=== PATIENT | male | born 1940 | race Caucasian/White ===

== ENCOUNTER → 2019-12-26 10:56 | Outpatient (BNVA) | payer OTHER, SELFPAY | PROVIDERS: Family Provider Emergency Medicine Emergency Medical Services; PCP Emergency Medicine Emergency Medical Services; Referring Provider Emergency Medicine Emergency Medical Services; Visit Provider Specialist | DX: M25.561 Pain in right knee (principal) | CPT/HCPCS: 73560; 73565 ==

== ENCOUNTER → 2020-01-08 09:02 | Outpatient (BNVA) | payer OTHER, SELFPAY | PROVIDERS: Family Provider Emergency Medicine Emergency Medical Services; PCP Emergency Medicine Emergency Medical Services; Visit Provider Specialist | DX: M25.512 Pain in left shoulder (principal); M19.012 Primary osteoarthritis, left shoulder | CPT/HCPCS: 73030 ==

== ENCOUNTER → 2020-03-03 11:29 | Outpatient (BNVA) | payer OTHER, SELFPAY | PROVIDERS: Family Provider Emergency Medicine Emergency Medical Services; PCP Emergency Medicine Emergency Medical Services; Referring Provider Emergency Medicine Emergency Medical Services; Visit Provider Podiatrist Foot & Ankle Surgery | DX: M79.671 Pain in right foot (principal); M79.672 Pain in left foot; M20.22 Hallux rigidus, left foot; M20.21 Hallux rigidus, right foot; M77.32 Calcaneal spur, left foot; M77.31 Calcaneal spur, right foot | CPT/HCPCS: 73630 ==

== ENCOUNTER → 2020-03-06 13:06 | Outpatient (BNVA) | payer OTHER, SELFPAY | PROVIDERS: Family Provider Emergency Medicine Emergency Medical Services; PCP Emergency Medicine Emergency Medical Services; Visit Provider Specialist | DX: G43.711 Chronic migraine without aura, intractable, with status migrainosus (principal); G31.83 Neurocognitive disorder with Lewy bodies; F02.80 Dementia in other diseases classified elsewhere, unspecified severity, without behavioral disturbance, psychotic disturbance, mood disturbance, and anxiety | CPT/HCPCS: 64615; 99213; J0585 ==

== ENCOUNTER → 2020-04-16 12:16 | Outpatient (BNVA) | payer OTHER, SELFPAY | PROVIDERS: Family Provider Emergency Medicine Emergency Medical Services; PCP Emergency Medicine Emergency Medical Services; Visit Provider Specialist | DX: G31.83 Neurocognitive disorder with Lewy bodies (principal); F02.80 Dementia in other diseases classified elsewhere, unspecified severity, without behavioral disturbance, psychotic disturbance, mood disturbance, and anxiety; G43.711 Chronic migraine without aura, intractable, with status migrainosus; R41.3 Other amnesia | CPT/HCPCS: 96116; 99213 ==

== ENCOUNTER 2020-04-25 08:35 | Outpatient (CLI) | payer OTHER, SELFPAY ==
--- NOTE | 2020-04-25 08:54 | MR_ITS ---
WS: [id number] MRI LUMBAR SPINE NONCONTRAST HISTORY: LUMBAR PAIN COMPARISON: None available. TECHNIQUE: Sagittal and axial multisequence imaging is submitted. Straightening of the normal lumbar lordosis. Mild disc space narrowing and desiccation throughout the lumbar spine. No marrow edema or acute fract ure. Conus terminates normally at L1. L1-L2: Diffuse annular disc bulging with facet and ligamentum flavum arthritis. Mild effacement of th e ventral thecal sac. No significant stenosis. L2-L3: Annular disc bulging and osteophytic ridging. Mild ligamentum flavum disease and facet arthrit is. Mild flattening of the ventral thecal sac and narrowing of the subarticular recesses. No signific ant stenosis. L3-L4: Diffuse annular disc bulging and osteophytic ridging. Mild facet and ligamentum flavum arthrit is. Mild bilateral subarticular recess and foraminal narrowing. L4-L5: Diffuse annular disc bulging with a focal central disc protrusion. Mild effacement of CSF. The re is mild ligamentum flavum arthritis and facet arthritis. Small amount of fluid in the facet joints . Mild central, subarticular recess and foraminal stenosis. L5-S1: Mild annular disc bulging and facet arthritis. Facet joint arthritis encroaches upon the S1 ne rve roots bilaterally without significant stenosis. RIGHT parapelvic cyst. Mild ectasia aorta. MR/MR lumbar spine wo con* [id number] IMPRESSION: 1. No severe central or foraminal stenosis. 2. Multilevel mild facet joint arthritis and spondylosis throughout the lumbar spine. 3. Mild central, subarticular recess and foraminal stenosis at L4-5. 4. Mild bilateral subarticular recess and foraminal narrowing at L3-4.
== END 2020-04-25 08:36 | disposition home or self-care (01) ==
LOC: RADSHAW 08:37
PROVIDERS: PCP Emergency Medicine Emergency Medical Services; Visit Provider Emergency Medicine Emergency Medical Services
DX: M54.5 Low back pain (principal); M48.061 Spinal stenosis, lumbar region without neurogenic claudication; M47.896 Other spondylosis, lumbar region; M13.88 Other specified arthritis, other site
CPT/HCPCS: 72148

== ENCOUNTER → 2020-05-13 08:22 | Outpatient (BNVA) | payer OTHER, SELFPAY | PROVIDERS: PCP Emergency Medicine Emergency Medical Services; Referring Provider Emergency Medicine Emergency Medical Services; Visit Provider Anesthesiology Pain Medicine | DX: M47.816 Spondylosis without myelopathy or radiculopathy, lumbar region (principal); M54.9 Dorsalgia, unspecified; M46.00 Spinal enthesopathy, site unspecified; M62.830 Muscle spasm of back; Z79.891 Long term (current) use of opiate analgesic | CPT/HCPCS: 99205 ==

== ENCOUNTER → 2020-05-21 12:55 | Outpatient (BNVA) | payer OTHER, SELFPAY | PROVIDERS: PCP Emergency Medicine Emergency Medical Services; Visit Provider Anesthesiology Pain Medicine | DX: M47.816 Spondylosis without myelopathy or radiculopathy, lumbar region (principal); M54.9 Dorsalgia, unspecified | CPT/HCPCS: 64493; 64494; 64495; J3490 ==

== ENCOUNTER → 2020-05-29 12:23 | Outpatient (BNVA) | payer OTHER, SELFPAY | PROVIDERS: PCP Emergency Medicine Emergency Medical Services; Visit Provider Specialist | DX: G43.711 Chronic migraine without aura, intractable, with status migrainosus (principal); G31.84 Mild cognitive impairment of uncertain or unknown etiology | CPT/HCPCS: 64615; 99213; J0585 ==

== ENCOUNTER → 2020-06-05 10:29 | Outpatient (BNVA) | payer OTHER, SELFPAY | PROVIDERS: PCP Emergency Medicine Emergency Medical Services; Visit Provider Anesthesiology Pain Medicine | DX: M47.816 Spondylosis without myelopathy or radiculopathy, lumbar region (principal); M46.00 Spinal enthesopathy, site unspecified; M54.9 Dorsalgia, unspecified; M62.830 Muscle spasm of back | CPT/HCPCS: 99213 ==

== ENCOUNTER → 2020-06-17 09:33 | Outpatient (BNVA) | payer OTHER, SELFPAY | PROVIDERS: PCP Emergency Medicine Emergency Medical Services; Visit Provider Anesthesiology Pain Medicine | DX: M47.816 Spondylosis without myelopathy or radiculopathy, lumbar region (principal); M54.9 Dorsalgia, unspecified | CPT/HCPCS: 64635; 64636; J1030 ==

== ENCOUNTER → 2020-07-01 12:56 | Outpatient (BNVA) | payer OTHER, SELFPAY | PROVIDERS: PCP Emergency Medicine Emergency Medical Services; Visit Provider Anesthesiology Pain Medicine | DX: M47.816 Spondylosis without myelopathy or radiculopathy, lumbar region (principal); M54.9 Dorsalgia, unspecified | CPT/HCPCS: 64635; 64636; J1030 ==

== ENCOUNTER → 2020-07-15 10:40 | Outpatient (BNVA) | payer OTHER, SELFPAY | PROVIDERS: PCP Emergency Medicine Emergency Medical Services; Visit Provider Anesthesiology Pain Medicine | DX: M47.816 Spondylosis without myelopathy or radiculopathy, lumbar region (principal); M24.28 Disorder of ligament, vertebrae; M62.830 Muscle spasm of back; M54.9 Dorsalgia, unspecified; M46.00 Spinal enthesopathy, site unspecified | CPT/HCPCS: 99213 ==

== ENCOUNTER → 2020-07-17 09:19 | Outpatient (BNVA) | payer OTHER, SELFPAY | PROVIDERS: PCP Emergency Medicine Emergency Medical Services; Visit Provider Specialist | DX: M19.012 Primary osteoarthritis, left shoulder (principal) | CPT/HCPCS: 73030 ==

== ENCOUNTER 2020-08-05 08:32 | Outpatient (RCR) | payer OTHER, SELFPAY | END 2020-09-01 23:59 | disposition home or self-care (01) | LOC: SPT 08:32 | PROVIDERS: PCP Emergency Medicine Emergency Medical Services; Referring Provider Emergency Medicine Emergency Medical Services; Visit Provider Emergency Medicine Emergency Medical Services | DX: M47.816 Spondylosis without myelopathy or radiculopathy, lumbar region (principal) | CPT/HCPCS: 97110; 97161 ==

== ENCOUNTER 2020-09-02 06:00 | Outpatient (RCR) | payer OTHER, SELFPAY | END 2020-10-02 23:59 | disposition home or self-care (01) | LOC: SPT 06:00 | PROVIDERS: PCP Emergency Medicine Emergency Medical Services; Referring Provider Emergency Medicine Emergency Medical Services; Visit Provider Emergency Medicine Emergency Medical Services | DX: M47.816 Spondylosis without myelopathy or radiculopathy, lumbar region (principal) | CPT/HCPCS: 97110; 97164 ==

== ENCOUNTER → 2020-09-24 09:48 | Outpatient (BNVA) | payer OTHER, SELFPAY | PROVIDERS: PCP Emergency Medicine Emergency Medical Services; Visit Provider Specialist | DX: G43.711 Chronic migraine without aura, intractable, with status migrainosus (principal); G31.84 Mild cognitive impairment of uncertain or unknown etiology | CPT/HCPCS: 64615; 99212; J0585 ==

== ENCOUNTER → 2020-10-06 15:54 | Outpatient (BNVA) | payer OTHER, SELFPAY | PROVIDERS: PCP Emergency Medicine Emergency Medical Services; Visit Provider Specialist | DX: G43.711 Chronic migraine without aura, intractable, with status migrainosus (principal); Z71.89 Other specified counseling | CPT/HCPCS: 96372; G0463 ==

== ENCOUNTER → 2020-12-18 08:53 | Outpatient (BNVA) | payer OTHER, SELFPAY | PROVIDERS: PCP Emergency Medicine Emergency Medical Services; Visit Provider Specialist | DX: G43.711 Chronic migraine without aura, intractable, with status migrainosus (principal); G31.84 Mild cognitive impairment of uncertain or unknown etiology | CPT/HCPCS: 64615; 99212; J0585 ==

== ENCOUNTER → 2021-03-26 10:23 | Outpatient (BNVA) | payer OTHER, SELFPAY | PROVIDERS: PCP Emergency Medicine Emergency Medical Services; Visit Provider Specialist | DX: G43.709 Chronic migraine without aura, not intractable, without status migrainosus (principal); G30.9 Alzheimer's disease, unspecified; F02.80 Dementia in other diseases classified elsewhere, unspecified severity, without behavioral disturbance, psychotic disturbance, mood disturbance, and anxiety | CPT/HCPCS: 64615; 96116; 99214; J0585 ==

== ENCOUNTER → 2021-06-25 10:03 | Outpatient (BNVA) | payer OTHER, SELFPAY | PROVIDERS: PCP Emergency Medicine Emergency Medical Services; Visit Provider Specialist | DX: G43.709 Chronic migraine without aura, not intractable, without status migrainosus (principal); G30.9 Alzheimer's disease, unspecified; F02.80 Dementia in other diseases classified elsewhere, unspecified severity, without behavioral disturbance, psychotic disturbance, mood disturbance, and anxiety | CPT/HCPCS: 64615; 99213; J0585 ==

== ENCOUNTER → 2021-09-17 08:10 | Outpatient (BNVA) | payer OTHER, SELFPAY | PROVIDERS: PCP Emergency Medicine Emergency Medical Services; Visit Provider Specialist | DX: G43.711 Chronic migraine without aura, intractable, with status migrainosus (principal); G30.9 Alzheimer's disease, unspecified; F02.80 Dementia in other diseases classified elsewhere, unspecified severity, without behavioral disturbance, psychotic disturbance, mood disturbance, and anxiety | CPT/HCPCS: 64615; 99213; J0585 ==

== ENCOUNTER → 2021-10-27 11:26 | Outpatient (BNVA) | payer OTHER, SELFPAY | PROVIDERS: PCP Emergency Medicine Emergency Medical Services; Visit Provider Surgery | DX: Z20.822 Contact with and (suspected) exposure to COVID-19 (principal) | CPT/HCPCS: 87635 ==

== ENCOUNTER 2021-10-30 08:28 | Day surgery (SDC) | payer OTHER, SELFPAY ==
[2021-10-28 15:33] VITALS: BMI 30.9
--- NOTE | 2021-10-30 08:54 | ANES.PREANE2 ---
Pre-Anesthetic Assessment Height/Weight: Height 1.65 m Weight 84.368 kg Operation Date: 10/30/21 10:00 Proposed Procedures p Colonoscopy 85364 R19.4(Not Applicable) - Johny Martin MD Familial anesthetic complications: None Was Beta Mandy taken within 24 hours: Yes Was Clonidine taken within 24 hours: N/A Social No alcohol and No tobacco Exam alert, oriented x 3, clear to auscultation bilaterally and regular rate & rhythm Airway Submandibular: within normal limits Cervical ROM: within normal limits Mallampati: Class I Dentition: false Pulmonary Chronic Obstructive Pulmonary Disease CV/HEM Atrial Fibrillation and Hypertension METS < 4 BPH Hepatic None reported GI Gastroesophageal Reflux Disease Metabolic None reported Musc/skel Osteoarthritis/DJD Unable to walk without cane Neuropsych None reported Anesthetic Plan ASA status: 3 Anesthesia: Anesthesia Evaluation and MAC Other: I discussed with the patient risks, goals, and benefits of MAC and general anesthesia. We discussed spectrum of MAC anesthesia including conversion to general as well as possibility of recall of intraoperative stimuli including discomfort/pain. Patient agrees to proceed with MAC. Risk of > 500 ml blood loss (7ml/kg in children): No Medications/Allergies Home Medications Medication Instructions Recorded Confirmed Last Taken Type aspirin 81 mg tablet,delayed 81 mg PO DAILY 12/25/19 10/28/21 Unknown History release (Adult Aspirin Regimen) azelastine 137 mcg (0.1 %) nasal 137 mcg INTRANASAL BID 12/25/19 10/28/21 Unknown History spray aerosol carboxymethylcellulose sodium 1 % 2 drop OPHTHALMIC (EYE) QID PRN 12/25/19 10/28/21 Unknown History eye liquid gel drops (Refresh Liquigel) cetirizine 10 mg tablet 10 mg PO DAILY tab 12/25/19 10/28/21 Unknown History cholecalciferol (vitamin D3) 25 1,000 unit PO DAILY 12/25/19 10/28/21 Unknown History mcg (1,000 unit) capsule finasteride 5 mg tablet 5 mg PO DAILY 12/25/19 10/28/21 Unknown History fluticasone propionate 50 2 inh INHALATION DAILY each 12/25/19 10/28/21 Unknown History mcg/actuation blister powder for inhalation folic acid 400 mcg tablet 400 mcg PO DAILY 12/25/19 10/28/21 Unknown History ipratropium 20 mcg-albuterol 100 1 puff INHALATION QID 12/25/19 10/28/21 Unknown History mcg/actuation mist for inhalation (Combivent Respimat) magnesium 200 mg tablet 400 mg PO DAILY tab 12/25/19 10/28/21 Unknown History melatonin 1 mg tablet 1 mg PO DAILY 12/25/19 10/28/21 Unknown History mometasone 50 mcg/actuation nasal 1 spray INTRANASAL DAILY gm 12/25/19 10/28/21 Unknown History spray montelukast 10 mg tablet 10 mg PO DAILY 12/25/19 10/28/21 Unknown History multivitamin 1 tab PO DAILY 12/25/19 10/28/21 Unknown History naproxen 250 mg tablet 250 mg PO DAILY PRN 12/25/19 10/28/21 Unknown History omega-3 fatty acids 1,000 mg 1,000 mg PO DAILY 12/25/19 10/28/21 Unknown History capsule (Fish Oil Concentrate) omeprazole 20 mg capsule,delayed 20 mg PO DAILY 12/25/19 10/28/21 Unknown History release pravastatin 40 mg tablet 40 mg PO DAILY 12/25/19 10/28/21 Unknown History rivaroxaban 20 mg tablet (Xarelto) 20 mg PO DAILY 12/25/19 10/28/21 Unknown History methocarbamol 750 mg tablet 750 mg PO BID #60 tab 06/05/20 10/28/21 Unknown Rx (Robaxin-750) Accomodative inserts #1 ea 07/03/20 10/07/21 Unknown Rx diabetic shoes #1 ea 09/16/20 10/07/21 Unknown Rx galantamine 12 mg tablet 12 mg PO BID #60 tab 07/03/21 10/28/21 Unknown Rx memantine 10 mg tablet (Namenda) 10 mg PO BID #60 tab 09/02/21 10/28/21 Unknown Rx calcium polycarbophil 625 mg tablet 1,250 mg PO DAILY 09/08/21 10/28/21 Unknown History docusate sodium 50 mg capsule 50 mg PO TID cap 09/08/21 10/28/21 Unknown History metoprolol tartrate 50 mg tablet 50 mg PO BID tab 09/08/21 10/28/21 Unknown History polyethylene glycol 3350 17 17 g PO DAILY PRN 09/08/21 10/28/21 Unknown History gram/dose oral powder (Miralax) erenumab-aooe 140 mg/mL 140 mg SUBCUT ONCE #1 ml 10/09/21 10/28/21 Unknown Rx subcutaneous auto-injector (Aimovig Autoinjector) albuterol sulfate 90 mcg/actuation 2 puff INHALATION Q6H PRN 10/28/21 10/28/21 Unknown History aerosol inhaler cartilage 40 mg-collagen II 10 1 tab PO DAILY 10/28/21 10/28/21 Unknown History mg-boron 5 mg-hyaluronate 3.3 mg tablet (Explore Engage) Allergies Allergy/AdvReac Type Severity Reaction Status Date / Time codeine Allergy Vomit Verified 10/28/21 15:51 PFS Anesthesia Medical History Atrial fibrillation BPH (benign prostatic hyperplasia) COPD (chronic obstructive pulmonary disease) DJD (degenerative joint disease) Headache History of fracture of lower extremity History of nonmelanoma skin cancer Hyperlipidemia Hypertension Mild cognitive impairment Numbness and tingling Surgical History History of open reduction and internal fixation (ORIF) procedure lle History of rhinoplasty Family History Other Chronic headaches Diabetes Memory loss Social History Alcohol intake: never Household members: spouse Marital status: History of recent travel: No Data Anesthesia Cardiac Studies: No Data to Display
[2021-10-30 09:15] VITALS: BP 142/76; PULSE 53; RESP 18; TEMP 36.4; O2SAT 97
[2021-10-30] MEDS: sodium chloride 0.9% 1,000 ML 30 ML IV (09:26)
--- NOTE | 2021-10-30 09:46 | W.PM.OPSFHP ---
Same Day Surgery H&P Indication for Procedure/HPI DATE OF PROCEDURE: October 30, 2021 CHIEF COMPLAINT/INDICATIONFOR SURGICAL PROCEDURE: screening PREOP DIAGNOSIS: diagnostic PLANNED PROCEDURE: Operation Date: 10/30/21 10:00 Proposed Procedures p Colonoscopy 97791 R19.4(Not Applicable) - Johny Martin MD Medications/Allergies* Home Medications Medication Instructions Recorded Confirmed Type aspirin 81 mg tablet,delayed 81 mg PO DAILY 12/25/19 10/30/21 History release (Adult Aspirin Regimen) azelastine 137 mcg (0.1 %) nasal 137 mcg INTRANASAL BID 12/25/19 10/30/21 History spray aerosol carboxymethylcellulose sodium 1 % 2 drop OPHTHALMIC (EYE) QID PRN 12/25/19 10/30/21 History eye liquid gel drops (Refresh Liquigel) cetirizine 10 mg tablet 10 mg PO DAILY tab 12/25/19 10/30/21 History cholecalciferol (vitamin D3) 25 1,000 unit PO DAILY 12/25/19 10/30/21 History mcg (1,000 unit) capsule finasteride 5 mg tablet 5 mg PO DAILY 12/25/19 10/30/21 History fluticasone propionate 50 2 inh INHALATION DAILY each 12/25/19 10/30/21 History mcg/actuation blister powder for inhalation folic acid 400 mcg tablet 400 mcg PO DAILY 12/25/19 10/30/21 History ipratropium 20 mcg-albuterol 100 1 puff INHALATION QID 12/25/19 10/30/21 History mcg/actuation mist for inhalation (Combivent Respimat) magnesium 200 mg tablet 400 mg PO DAILY tab 12/25/19 10/30/21 History melatonin 1 mg tablet 1 mg PO DAILY 12/25/19 10/30/21 History mometasone 50 mcg/actuation nasal 1 spray INTRANASAL DAILY gm 12/25/19 10/30/21 History spray montelukast 10 mg tablet 10 mg PO DAILY 12/25/19 10/30/21 History multivitamin 1 tab PO DAILY 12/25/19 10/30/21 History naproxen 250 mg tablet 250 mg PO DAILY PRN 12/25/19 10/30/21 History omega-3 fatty acids 1,000 mg 1,000 mg PO DAILY 12/25/19 10/30/21 History capsule (Fish Oil Concentrate) omeprazole 20 mg capsule,delayed 20 mg PO DAILY 12/25/19 10/30/21 History release pravastatin 40 mg tablet 40 mg PO DAILY 12/25/19 10/30/21 History rivaroxaban 20 mg tablet (Xarelto) 20 mg PO DAILY 12/25/19 10/30/21 History calcium polycarbophil 625 mg tablet 1,250 mg PO DAILY 09/08/21 10/30/21 History docusate sodium 50 mg capsule 50 mg PO TID cap 09/08/21 10/30/21 History metoprolol tartrate 50 mg tablet 50 mg PO BID tab 09/08/21 10/30/21 History polyethylene glycol 3350 17 17 g PO DAILY PRN 09/08/21 10/30/21 History gram/dose oral powder (Miralax) albuterol sulfate 90 mcg/actuation 2 puff INHALATION Q6H PRN 10/28/21 10/30/21 History aerosol inhaler cartilage 40 mg-collagen II 10 1 tab PO DAILY 10/28/21 10/30/21 History mg-boron 5 mg-hyaluronate 3.3 mg tablet (Broken Buy) Allergies/Adverse Reactions Allergy/AdvReac Type Severity Reaction Status Date / Time codeine Allergy Vomit Verified 10/28/21 15:51 Current Medications: Generic Name Dose Route Start Last Admin Trade Name Freq PRN Reason Stop Dose Admin Sodium Chloride 1,000 mls @ 30 mls/hr 10/30/21 09:30 10/30/21 09:26 Sodium Chloride 0.9% IV 10/31/21 09:29 30 mls/hr .Q24H RENITA Administration Pertinent History/Comorbid Conditions* Medical History (Updated 09/08/21 @ 09:04 by Johny Martin MD) Atrial fibrillation BPH (benign prostatic hyperplasia) COPD (chronic obstructive pulmonary disease) DJD (degenerative joint disease) Headache History of fracture of lower extremity History of nonmelanoma skin cancer Hyperlipidemia Hypertension Mild cognitive impairment Numbness and tingling Surgical History (Updated 09/08/21 @ 09:11 by Johny Martin MD) History of open reduction and internal fixation (ORIF) procedure lle History of rhinoplasty Family History (Updated 12/25/19 @ 13:19 by Lori Gonzalez LPN) Diabetes Memory loss Chronic headaches Social History Alcohol intake: never Household members: spouse Marital status: History of recent travel: No Pertinent Exam Findings alert, oriented x 3 and regular rate & rhythm Recommendations Surgery/Procedure today Coding Level of Care Code 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
[2021-10-30 10:34] VITALS: BP 97/58; PULSE 52; RESP 18; TEMP 36.1; O2SAT 97
[2021-10-30 10:48] VITALS: BP 115/68; PULSE 50; RESP 18; O2SAT 99
--- NOTE | 2021-10-30 12:59 | ANE.PACU2 ---
Inpatient post-anesthesia follow up: Airway intact: Yes Vital signs: Temperature 97.0 F Pulse Rate 50 Respiratory Rate 18 Blood Pressure 115/68 Pulse Oximetry 99 Oxygen Delivery Me thod Nasal Cannula Oxygen Flow Rate 3 Fraction of Inspir ed Oxygen Hydration adequate: Yes Nausea and vomiting: No Pain level: 1 Mental status: Baseline
== END 2021-10-30 11:26 | disposition home or self-care (01) ==
PROVIDERS: PCP Emergency Medicine Emergency Medical Services; Visit Provider Surgery
PROC: 0DJD8ZZ Inspection of Lower Intestinal Tract, Via Natural or Artificial Opening Endoscopic (ICD-10-PCS; CPT 45378; principal; 2021-10-30 10:00)
DX: K21.9 Gastro-esophageal reflux disease without esophagitis (principal); D12.0 Benign neoplasm of cecum; D12.4 Benign neoplasm of descending colon; D12.5 Benign neoplasm of sigmoid colon; D12.3 Benign neoplasm of transverse colon; K64.8 Other hemorrhoids; J44.9 Chronic obstructive pulmonary disease, unspecified; I48.91 Unspecified atrial fibrillation; I10 Essential (primary) hypertension; N40.0 Benign prostatic hyperplasia without lower urinary tract symptoms; M19.90 Unspecified osteoarthritis, unspecified site; Z79.82 Long term (current) use of aspirin; E78.5 Hyperlipidemia, unspecified
CPT/HCPCS: 45380; 45385; 88305; J2704; J7030

== ENCOUNTER → 2021-12-10 08:09 | Outpatient (BNVA) | payer OTHER, SELFPAY | PROVIDERS: PCP Emergency Medicine Emergency Medical Services; Visit Provider Specialist | DX: G43.711 Chronic migraine without aura, intractable, with status migrainosus (principal); G30.9 Alzheimer's disease, unspecified; F02.80 Dementia in other diseases classified elsewhere, unspecified severity, without behavioral disturbance, psychotic disturbance, mood disturbance, and anxiety | CPT/HCPCS: 64615; 99212; 99214; J0585 ==

== ENCOUNTER → 2022-02-18 10:35 | Outpatient (BNVA) | payer OTHER, SELFPAY | PROVIDERS: PCP Emergency Medicine Emergency Medical Services; Visit Provider Specialist | DX: Z71.89 Other specified counseling (principal); M19.012 Primary osteoarthritis, left shoulder | CPT/HCPCS: 20610; J1100; J2795; J3301 ==

== ENCOUNTER → 2022-02-19 09:08 | Outpatient (BNVA) | payer OTHER, SELFPAY | PROVIDERS: PCP Emergency Medicine Emergency Medical Services; Visit Provider Internal Medicine | DX: I48.91 Unspecified atrial fibrillation (principal); I10 Essential (primary) hypertension; E78.5 Hyperlipidemia, unspecified; Z79.01 Long term (current) use of anticoagulants; J44.9 Chronic obstructive pulmonary disease, unspecified | CPT/HCPCS: 99214 ==

== ENCOUNTER → 2022-03-04 08:58 | Outpatient (BNVA) | payer OTHER, SELFPAY | PROVIDERS: PCP Emergency Medicine Emergency Medical Services; Visit Provider Specialist | DX: G43.711 Chronic migraine without aura, intractable, with status migrainosus (principal); G30.9 Alzheimer's disease, unspecified; F02.80 Dementia in other diseases classified elsewhere, unspecified severity, without behavioral disturbance, psychotic disturbance, mood disturbance, and anxiety | CPT/HCPCS: 64615; 96116; 99213; 99214; J0585 ==

== ENCOUNTER → 2022-05-27 08:19 | Outpatient (BNVA) | payer OTHER, SELFPAY | PROVIDERS: PCP Emergency Medicine Emergency Medical Services; Visit Provider Specialist | DX: M19.012 Primary osteoarthritis, left shoulder (principal); G43.711 Chronic migraine without aura, intractable, with status migrainosus; G30.9 Alzheimer's disease, unspecified; F02.80 Dementia in other diseases classified elsewhere, unspecified severity, without behavioral disturbance, psychotic disturbance, mood disturbance, and anxiety | CPT/HCPCS: 20610; 64615; 99212; J0585; J1100; J2795; J3301 ==

== ENCOUNTER → 2022-08-19 10:36 | Outpatient (BNVA) | payer OTHER, SELFPAY | PROVIDERS: PCP Emergency Medicine Emergency Medical Services; Visit Provider Specialist | DX: G43.711 Chronic migraine without aura, intractable, with status migrainosus (principal) | CPT/HCPCS: 64615; J0585 ==

== ENCOUNTER → 2022-09-01 12:49 | Outpatient (BNVA) | payer OTHER, SELFPAY | PROVIDERS: PCP Emergency Medicine Emergency Medical Services; Visit Provider Internal Medicine | DX: I10 Essential (primary) hypertension (principal); E78.5 Hyperlipidemia, unspecified; Z79.01 Long term (current) use of anticoagulants; I48.91 Unspecified atrial fibrillation; J44.9 Chronic obstructive pulmonary disease, unspecified | CPT/HCPCS: 99213 ==

== ENCOUNTER → 2022-09-02 08:43 | Outpatient (BNVA) | payer OTHER, SELFPAY | PROVIDERS: PCP Emergency Medicine Emergency Medical Services; Visit Provider Specialist | DX: M19.012 Primary osteoarthritis, left shoulder (principal) | CPT/HCPCS: 20610; J1100; J2795; J3301 ==

== ENCOUNTER → 2022-11-11 10:48 | Outpatient (BNVA) | payer OTHER, SELFPAY | PROVIDERS: PCP Emergency Medicine Emergency Medical Services; Visit Provider Specialist | DX: G30.9 Alzheimer's disease, unspecified (principal); F02.80 Dementia in other diseases classified elsewhere, unspecified severity, without behavioral disturbance, psychotic disturbance, mood disturbance, and anxiety; G43.711 Chronic migraine without aura, intractable, with status migrainosus | CPT/HCPCS: 64615; 99212; J0585 ==

== ENCOUNTER → 2022-12-09 08:30 | Outpatient (BNVA) | payer OTHER, SELFPAY | PROVIDERS: PCP Emergency Medicine Emergency Medical Services; Visit Provider Specialist | DX: M19.012 Primary osteoarthritis, left shoulder (principal) | CPT/HCPCS: 20610; J1100; J2795; J3301 ==

== ENCOUNTER 2023-01-24 10:10 | Outpatient (CLI) | payer OTHER, SELFPAY ==
--- NOTE | 2023-01-24 11:07 | USCV_ITS ---
Reid Farooq Age: 82 Gender: M : 1940 Exam Date: 01/24/2023 11:44 Ordering Phys: Justice Koehler Technologist: Tank Ramirez Exam Location: [facility] [place] Indication: hypertension BP: 131 / 92 HR: 110 Rhythm: Atrial fibrillation Technical Quality: Adequate MEASUREMENTS (Male / Female) Normal Values 2D ECHO LVOT Diameter 2.0 cm LV Ejection Fraction MOD 2C 60.3 % LV Ejection Fraction 2C AL 60.6 % LA Diameter 3.6 cm LA Width 3.6 cm LA Height 5.5 cm RA Width 4.1 cm RA Height 5.6 cm Aorta at Sinotubular Diameter 2.7 cm IVC Diameter 1.7 cm M-MODE Aortic Annulus Diameter 2.8 cm LA Ao Ratio MM 1.1 MV E Point Septal Separation 0.4 cm DOPPLER AV Peak Velocity 124.7 cm/s LVOT Peak Velocity 68.0 cm/s AV Area Cont Eq vti 1.8 cm squared AV Area Cont Eq pk 1.8 cm squared MV Peak Velocity 88.0 cm/s MV Area PHT 5.5 cm squared MV E' Velocity 38.0 cm/s Mitral E to MV E' Ratio 5.7 Mitral E to LV E' Lateral Ratio 5.8 Mitral E to LV E' Septal Ratio 5.6 TR Peak Velocity 263.1 cm/s TR Peak Gradient 27.7 mmHg TR Mean Velocity 199.1 cm/s TR Mean Gradient 17.1 mmHg TR Velocity Time Integral 71.1 cm Right Atrial Pressure 3.0 mmHg Pulmonary Artery Systolic Pressu 30.7 mmHg PV Peak Velocity 98.7 cm/s RV Acceleration Time 0.1 s RV Ejection Time 0.3 s RV AcT/ET 0.2 FINDINGS Left Ventricle Left ventricle is normal in size. LV systolic function is normal with EF 55 to 60%. No regional wall motion abnormalities are seen. Diastolic function is indeterminate because of atrial fibrillation. Right Ventricle Normal in size and function Right Atrium Normal in size Left Atrium Normal in size Mitral Valve Mitral valve is thickened and calcified. Mild to moderate mitral regurgitation. Aortic Valve Grossly normal. No significant stenosis. Tricuspid Valve Mild tricuspid regurgitation. Pulmonary artery systolic pressure is 30 to 35 mmHg. Pulmonic Valve Not well-visualized Pericardium Normal Aorta Normal in size IVC Appears to be normal CONCLUSIONS LV systolic function is normal with EF 55 to 60%. Diastolic function is indeterminate because of atrial fibrillation Mild to moderate mitral regurgitation Mild tricuspid regurgitation Compared to prior echocardiogram from 2013, no significant changes are seen. Rodrigue Zhou MD (Electronically Signed) Final Date: 29 January 2023 16:54 S
== END 2023-01-24 10:11 | disposition home or self-care (01) ==
LOC: RAD 10:15
PROVIDERS: PCP Emergency Medicine Emergency Medical Services; Visit Provider Chiropractor
DX: I10 Essential (primary) hypertension (principal); I48.91 Unspecified atrial fibrillation; I34.0 Nonrheumatic mitral (valve) insufficiency; I07.1 Rheumatic tricuspid insufficiency
CPT/HCPCS: 93306

== ENCOUNTER → 2023-02-04 12:42 | Outpatient (BNVA) | payer OTHER, SELFPAY | PROVIDERS: PCP Emergency Medicine Emergency Medical Services; Visit Provider Specialist | DX: G43.711 Chronic migraine without aura, intractable, with status migrainosus (principal); G30.9 Alzheimer's disease, unspecified; F02.80 Dementia in other diseases classified elsewhere, unspecified severity, without behavioral disturbance, psychotic disturbance, mood disturbance, and anxiety | CPT/HCPCS: 64615; J0585 ==

== ENCOUNTER → 2023-03-17 09:15 | Outpatient (BNVA) | payer OTHER, SELFPAY | PROVIDERS: PCP Emergency Medicine Emergency Medical Services; Visit Provider Specialist | DX: M19.012 Primary osteoarthritis, left shoulder (principal) | CPT/HCPCS: 20610; J1100; J2795; J3301 ==

== ENCOUNTER → 2023-05-03 14:46 | Outpatient (BNVA) | payer OTHER, SELFPAY | PROVIDERS: PCP Emergency Medicine Emergency Medical Services; Visit Provider Nurse Practitioner Family | DX: L57.0 Actinic keratosis (principal); D18.01 Hemangioma of skin and subcutaneous tissue; L81.4 Other melanin hyperpigmentation; L82.1 Other seborrheic keratosis; D17.9 Benign lipomatous neoplasm, unspecified; B35.1 Tinea unguium; Z85.828 Personal history of other malignant neoplasm of skin | CPT/HCPCS: 17000; 17003; 99213 ==

== ENCOUNTER → 2023-05-05 08:02 | Outpatient (BNVA) | payer OTHER, SELFPAY | PROVIDERS: PCP Emergency Medicine Emergency Medical Services; Visit Provider Specialist | DX: G30.9 Alzheimer's disease, unspecified (principal); F02.80 Dementia in other diseases classified elsewhere, unspecified severity, without behavioral disturbance, psychotic disturbance, mood disturbance, and anxiety; G43.711 Chronic migraine without aura, intractable, with status migrainosus | CPT/HCPCS: 64615; 99213; J0585 ==

== ENCOUNTER 2023-05-08 10:23 | Emergency (ER) | payer OTHER, SELFPAY ==
[2023-05-08 10:24] VITALS: BP 115/78; PULSE 70; RESP 18; TEMP 37; O2SAT 96
[2023-05-08 10:35] VITALS: BP 117/82; PULSE 72; O2SAT 94
--- NOTE | 2023-05-08 10:38 | ECG_ITS ---
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 Measurements Intervals [place] Rate: 75 P: 135 MI: 218 QRS: 68 QRSD: 152 T: -26 QT: 393 QTc: 439 Interpretive Statements Atrial fibrillation with controlled ventricular response rate RIGHT BUNDLE BRANCH BLOCK [120+ ms QRS DURATION, UPRIGHT V1, 40+ ms S IN I/aVL/V4/V5/V6] Compared to ECG 02/22/2019 11:08:44 Ectopic atrial rhythm now present First degree AV block now present Sinus bradycardia no longer present Electronically Signed On 05-08-2023 19:52:01 CDT by Mayo Garcia M.D. [email or web address] [id number] f
[2023-05-08 10:39] VITALS: BP 117/82; BP 118/79; BP 121/81; PULSE 100; PULSE 72; PULSE 90
--- NOTE | 2023-05-08 10:39 | XRR_ITS ---
PROCEDURE INFORMATION: Exam: XR Chest Exam date and time: 05/08/2023 10:45 AM Age: 83 years old Clinical indication: Other: Syncope TECHNIQUE: Imaging protocol: Radiologic exam of the chest. Views: 1 view. COMPARISON: CR XR chest 1V [id number] 02/22/2019 11:24 AM FINDINGS: Lungs: The lungs are somewhat hyperinflated, likely representing COPD. Minimally increased lung markings haziness of the lower lungs, which can be seen with pulmonary congestion. Pneumonia should be excluded clinically. Pleural spaces: Unremarkable. No pleural effusion. No pneumothorax. Heart/Mediastinum: Stable cardiomediastinal silhouette. Bones/joints: Unremarkable. XR/XR chest 1V portable [id number] IMPRESSION: Streaky bibasilar atelectasis. Mild pulmonary congestion or pneumonia can have this appearance and should be excluded clinically. COPD changes.
[2023-05-08 11:05] VITALS: BP 118/82; PULSE 88; RESP 26; O2SAT 90
[2023-05-08 11:14] LABS: Basophils % 0.4 %; Eosinophils # 0.2 10^3/uL (0.0-0.8); Hematocrit 42.1 % (42.0-52.0); Hemoglobin 13.9 g/dL (11.7-16.6); Lymphocytes % 40.6 %; Mean Corpuscular Hemoglobin 32.2 pg (28.0-34.0); Mean Corpuscular Volume 97.5 fl (80-94); Mean Platelet Volume 9.1 fL (7.4-10.4); Monocytes # 0.8 10^3/uL (0.2-0.9); Monocytes % 10.1 %; Neutrophils % 45.8 %; Nucleated Red Blood Cells % 0 %; Platelet Count 178 10^3/cmm (130-400); Red Blood Count 4.32 10^6/uL (4.1-5.3); White Blood Count 7.4 10^3/uL (4.0-10.0)
--- NOTE | 2023-05-08 11:28 | ED_ITS ---
HPI - Syncope General: Chief Complaint: Syncope Stated Complaint: SYNCOPE Time Seen by Provider: 05/08/23 10:37 History of Present Illness: 83-year-old male presents emerged department via EMS personnel. Patient is accompanied by his . She states that he was sitting in mandaeism and at that time stated he did not feel well and leaned over on the pew at the mandaeism and she states that he passed out for few seconds. The patient did appear to have loss of bowel and bladder. Patient does have a history of dementia and he is pleasantly confused at present which is his baseline. The family states that he did not fall out of the mandaeism seating pew. He denies chest pain, dizziness or lightheaded feeling. He denies fatigue or malaise at present. Associated symptoms: Reports lightheadedness Review of Systems General: Reports: 10 or more systems reviewed and unremarkable except in HPI and below Card: Reports: lightheadedness and pre-syncope PFSH ED PFSH: Medical History Atrial fibrillation BPH (benign prostatic hyperplasia) Colon polyps COPD (chronic obstructive pulmonary disease) DJD (degenerative joint disease) Headache History of fracture of lower extremity History of nonmelanoma skin cancer Hyperlipidemia Hypertension Mild cognitive impairment Numbness and tingling Surgical History History of open reduction and internal fixation (ORIF) procedure lle History of rhinoplasty Status post colonoscopy (10/30/21) Family History Other Chronic headaches Diabetes Memory loss Social History Smoking and tobacco status: never smoked Alcohol intake: never Substance/Drug Use: never Household members: spouse Marital status: Physical Exam Const: COMMON NORMALS: no acute distress, average body habitus, patient oriented x3, no limitations, alert and well nourished HENMT: COMMON NORMALS: normocephalic, Normal nasal mucous membranes and turbinates present and moist oral mucous membranes HEAD & SCALP: normocephalic NOSE: Normal nasal mucous membranes and turbinates present Eye: COMMON NORMALS: Equal, round and reactive pupils present and EOMs intact bilaterally PUPIL: Yes Equal, round and reactive pupils present Neck/C-Spine: COMMON NORMALS: full ROM, no lymphadenopathy, supple and no meningeal signs Resp: COMMON NORMALS: normal respiratory effort, No retractions and clear to auscultation bilaterally AUSCULTATION: clear to auscultation bilaterally Cardio: COMMON NORMALS: regular rate, regular rhythm, S1 normal heart sound present, S2 normal heart sound present, No gallops present (Cardio), No murmurs present (Cardio) and Peripheral pulses 2+ throughout RATE: regular rate RHYTHM: regular rhythm HEART SOUNDS: S1 normal heart sound present and S2 normal heart sound present PERIPHERAL PULSES: Peripheral pulses 2+ throughout GI: COMMON NORMALS: Normal to inspection, nondistended, normoactive bowel sounds present, Soft to palpation and non-tender PALPATION: Yes Soft to palpation : COMMON NORMALS: Yes no CVA tenderness BLADDER/KIDNEY EXAM: Yes no CVA tenderness Back/Pelvis: COMMON NORMALS: no CVA tenderness and thoracic and lumbar spine normal to inspection Extremity: COMMON NORMALS: normal to inspection, full ROM and capillary refill normal Neuro: COMMON NORMALS: patient oriented x3, CN's II-XII intact bilaterally, moves all extremities, no focal motor deficits, no sensory deficits noted and deep tendon reflexes 2+ bilaterally SENSORIUM/ORIENTATION: Yes alert MENINGEAL SIGNS: Yes no meningeal signs Psych: COMMON NORMALS: mental status grossly normal, Normal thought process present and cooperative THOUGHT PROCESS: Normal thought process present Skin: COMMON NORMALS: no rashes or lesions noted and turgor normal GENERAL SKIN EXAM: no rashes or lesions noted and turgor normal Course Vital Signs: Vital signs: Vital Signs Temperature 98.6 F 05/08/23 10:24 Pulse Rate 97 05/08/23 14:32 Respiratory Rate 20 H 05/08/23 14:32 Blood Pressure 114/69 05/08/23 12:30 Pulse Oximetry 92 05/08/23 14:32 Oxygen Delivery Me thod Room Air 05/08/23 12:30 MDM - Syncope Medical Decision Making Physical exam completed and documented. I will obtain laboratory evaluation to include a CBC and a CMP to evaluate his hydration status. Patient is at his baseline. I suspect most likely that per his family he did not sleep very well last night and that may have led to his and his family's concern for his presyncopal episode. He does not appear to be in any acute distress I have discussed the radiographic and laboratory findings with the family and have advised them to follow-up with her primary care provider. Patient was discharged home in stable condition and in no acute distress at present. Medical Records I reviewed the patient's medical records. Lab Data I reviewed the patient's lab results. 05/08/23 10:45 05/08/23 10:45 Radiology Impressions Chest X-Ray 05/08/23 10:39 IMPRESSION: Streaky bibasilar atelectasis. Mild pulmonary congestion or pneumonia can have this appearance and should be excluded clinically. COPD changes. Laboratory Results WBC 7.4 10^3/uL (4.0-10.0) 05/08/23 10:45 RBC 4.32 10^6/uL (4.1-5.3) 05/08/23 10:45 Hgb 13.9 g/dL (11.7-16.6) 05/08/23 10:45 Hct 42.1 % (42.0-52.0) 05/08/23 10:45 MCV 97.5 fl (80-94) H 05/08/23 10:45 MCH 32.2 pg (28.0-34.0) 05/08/23 10:45 MCHC 33.0 g/dL (30.0-36.0) 05/08/23 10:45 RDW 12.0 % (12.1-15.1) L 05/08/23 10:45 Plt Count 178 10^3/cmm (130-400) 05/08/23 10:45 MPV 9.1 fL (7.4-10.4) 05/08/23 10:45 Neut % (Auto) 45.8 % 05/08/23 10:45 Lymph % (Auto) 40.6 % 05/08/23 10:45 [place] % (Auto) 10.1 % 05/08/23 10:45 Eos % (Auto) 3.0 % 05/08/23 10:45 Baso % (Auto) 0.4 % 05/08/23 10:45 Neut # (Auto) 3.40 10^3/uL (1.8-7.7) 05/08/23 10:45 Lymph # (Auto) 3.0 10^3/uL (0.8-4.8) 05/08/23 10:45 [place] # (Auto) 0.8 10^3/uL (0.2-0.9) 05/08/23 10:45 Eos # (Auto) 0.2 10^3/uL (0.0-0.8) 05/08/23 10:45 Baso # (Auto) 0.0 10^3/uL (0.0-0.1) 05/08/23 10:45 Nucleated RBC % (auto) 0 % 05/08/23 10:45 Nucleated RBCs # 0.0 /100WBC 05/08/23 10:45 Sodium 137 mmol/L (136-145) 05/08/23 10:45 Potassium 4.6 mmol/L (3.5-5.1) 05/08/23 10:45 Chloride 105 mmol/L (98-107) 05/08/23 10:45 Carbon Dioxide 22 mmol/L (22-29) 05/08/23 10:45 Anion Gap 14.6 (5-19) 05/08/23 10:45 BUN 16 mg/dL (8-23) 05/08/23 10:45 Creatinine 0.8 mg/dL (0.7-1.2) 05/08/23 10:45 GFR Calculation Not Reportable 05/08/23 10:45 Glucose 148 mg/dL (65-115) H 05/08/23 10:45 Calculated Osmolality 288 mOsm/kg (285-295) 05/08/23 10:45 Calcium 9.1 mg/dL (8.5-10.5) 05/08/23 10:45 Total Bilirubin 0.5 mg/dL (0.15-1.2) 05/08/23 10:45 AST 16 U/L (0-40) 05/08/23 10:45 ALT 13 U/L (0-41) 05/08/23 10:45 Alkaline Phosphatase 80 U/L (40-130) 05/08/23 10:45 Troponin T Baseline 6 ng/L (0-15) 05/08/23 10:45 Troponin T 120 Minute 6.71 ng/L (0-15) 05/08/23 13:27 Delta Troponin T 0.71 ABS# (0-10) 05/08/23 13:27 NT-Pro-B Natriuret Pep 1043 pg/mL (0-450) H 05/08/23 10:45 Total Protein 6.3 g/dL (6.6-8.7) L 05/08/23 10:45 Albumin 3.4 g/dL (3.5-5.2) L 05/08/23 10:45 Globulin 2.9 g/dL (1.3-4.6) 05/08/23 10:45 Imaging Data CXR: Radiologist's impression: Streaky bibasilar atelectasis. Mild pulmonary congestion or possible pneumonia may have this appearance and should be excluded, clinically. Changes consistent with COPD Discharge Plan Discharge Patient Disposition: Home Clinical Impression: Syncope due to orthostatic hypotension, Dehydration Condition: Stable Prescriptions: No Action metoprolol tartrate 25 mg tablet 25 mg PO BID Qty: 180 3RF calcium polycarbophil 625 mg tablet 1,250 mg PO DAILY PRN (Reason: unknown) docusate sodium 50 mg capsule 50 mg PO TID PRN (Reason: Constipation) polyethylene glycol 3350 [Miralax] 17 gram/dose powder 17 g PO DAILY PRN (Reason: Constipation) azelastine 137 mcg (0.1 %) aerosol,spray 1 spray INTRANASAL BID PRN (Reason: unknown) cetirizine 10 mg tablet 10 mg PO QPM Combivent Respimat 20-100 mcg/actuation mist 1 puff INHALATION QID cholecalciferol (vitamin D3) 25 mcg (1,000 unit) capsule 1,000 unit PO QAM folic acid 400 mcg tablet 400 mcg PO QAM mometasone 50 mcg/actuation spray,non-aerosol 1 spray INTRANASAL QAM multivitamin Tablet 1 tab PO QAM omeprazole 20 mg capsule,delayed release(DR/EC) 20 mg PO QAM pravastatin 40 mg tablet 40 mg PO QPM Refresh Liquigel 1 % drops, liquid gel 2 drop ophthalmic (eye) QID Xarelto 20 mg tablet 20 mg PO QPM Hold Instructions: Resume on 11/01/21. (DME) Accomodative inserts See Rx Instructions .Route .MEDSUPPLY Qty: 1 0RF Rx Instructions: As directed galantamine 12 mg tablet 12 mg PO BID Qty: 180 3RF memantine [Namenda] 10 mg tablet 10 mg PO BID Qty: 180 2RF (DME) diabetic shoes See Rx Instructions .Route .MEDSUPPLY Qty: 1 0RF Rx Instructions: As directed Osteo Bi-Flex 250-200 mg Tablet 1 tab PO QAM magnesium oxide 400 mg magnesium Tablet 400 mg PO QAM Aimovig Autoinjector 140 mg/mL auto-injector 140 mg SUBCUT Q30D Rx Instructions: Subcutaneous each month Discharge Orders: Discharge ED (Routine); Ordered 05/08/23 Ordered By: Augustine Santiago Referrals: Pavel Randall DO [Primary Care Provider] - Patient Instructions: Opioid Safety, Pain Management Coding Level of Care Code ED Academic Tutor for Wesly Longoria
[2023-05-08 11:44] LABS: Alanine Aminotransferase 13 U/L (0-41); Albumin Level 3.4 g/dL (3.5-5.2); Alkaline Phosphatase 80 U/L (40-130); Blood Urea Nitrogen 16 mg/dL (8-23); Calcium 9.1 mg/dL (8.5-10.5); Carbon Dioxide 22 mmol/L (22-29); Chloride 105 mmol/L (98-107); Globulin 2.9 g/dL (1.3-4.6); Glucose 148 mg/dL (65-115); NT Pro B Type Natriuretic Pept 1043 pg/mL (0-450); Osmolality Calculated 288 mOsm/kg (285-295); Sodium 137 mmol/L (136-145); Total Bilirubin 0.5 mg/dL (0.15-1.2); Total Protein 6.3 g/dL (6.6-8.7)
[2023-05-08 11:54] LABS: Anion Gap 14.6 (5-19); Aspartate Amino Transferase 16 U/L (0-40); Potassium 4.6 mmol/L (3.5-5.1)
[2023-05-08 12:02] LABS: Troponin(5th) Baseline 6 ng/L (0-15)
[2023-05-08] MEDS: sodium chloride 0.9% 1,000 ML 999 ML IV (12:13)
--- NOTE | 2023-05-08 12:19 | PC.PHAR ---
pts verified pts medications-pts states the pt hasnt taken aspirin 81mg daily for 2 months-pts states the pt no longer uses the albuterol inhaler-pts states the pt only takes the medications entered faxed id for med list-[facility] is closed on the weekends
[2023-05-08 12:30] VITALS: BP 114/69; PULSE 82; O2SAT 92
--- NOTE | 2023-05-08 12:38 | ECG_ITS ---
[facility] Test Date: 2023-05-08 Pat Name: Reid Farooq Department: Room: Gender: Male Health Teacher: : 1940 Requested By: Augustine Santiago Order Number: [id number] Antonio MD: Mayo Garcia M.D. Measurements Intervals [place] Rate: 80 P: 0 LA: 0 QRS: 72 QRSD: 157 T: -40 QT: 414 QTc: 480 Interpretive Statements ATRIAL FIBRILLATION WITH ABERRANT CONDUCTION OR VENTRICULAR PREMATURE COMPLEXES INTRAVENTRICULAR CONDUCTION DELAY [130+ ms QRS DURATION] POSSIBLE INFERIOR MYOCARDIAL INFARCTION , OF INDETERMINATE AGE [30 ms Q WAVE IN II/aVF] Compared to ECG 05/08/2023 10:30:08 Ventricular premature complex(es) now present Aberrant conduction of supraventricular beat(s) now present Intraventricular conduction delay now present Myocardial infarct finding now present Ectopic atrial rhythm no longer present First degree AV block no longer present Right bundle-branch block no longer present Electronically Signed On 05-08-2023 20:04:55 CDT by Mayo Garcia M.D. [id number]
[2023-05-08 14:00] LABS: Troponin 5 2HR 6.71 ng/L (0-15)
[2023-05-08 14:32] VITALS: PULSE 97; RESP 20; O2SAT 92
[2023-05-08 15:56] LABS: Troponin 5 2HR Delta 0.71 ABS# (0-10)
== END 2023-05-08 14:33 | disposition home or self-care (01) ==
PROVIDERS: Physician Assistant; Emergency Provider Internal Medicine; PCP Emergency Medicine Emergency Medical Services
DX: I95.1 Orthostatic hypotension (principal); E86.0 Dehydration; J44.9 Chronic obstructive pulmonary disease, unspecified; E78.5 Hyperlipidemia, unspecified; I10 Essential (primary) hypertension
CPT/HCPCS: 36415; 71045; 80053; 83880; 84484; 85025; 93005; 96360; 96361; 99285; J7030

== ENCOUNTER → 2023-05-11 13:08 | Outpatient (BNVA) | payer OTHER, SELFPAY | PROVIDERS: PCP Emergency Medicine Emergency Medical Services; Referring Provider Emergency Medicine Emergency Medical Services; Visit Provider Specialist | DX: M17.11 Unilateral primary osteoarthritis, right knee | CPT/HCPCS: 73562; 99213 ==

== ENCOUNTER → 2023-06-01 13:35 | Outpatient (BNVA) | payer OTHER, SELFPAY | PROVIDERS: PCP Emergency Medicine Emergency Medical Services; Visit Provider Internal Medicine | DX: I10 Essential (primary) hypertension (principal); E78.5 Hyperlipidemia, unspecified; Z79.01 Long term (current) use of anticoagulants; I48.91 Unspecified atrial fibrillation; J44.9 Chronic obstructive pulmonary disease, unspecified | CPT/HCPCS: 99214 ==

== ENCOUNTER 2023-06-07 09:04 | Outpatient (CLI) | payer OTHER, SELFPAY ==
--- NOTE | 2023-06-07 09:30 | MR_ITS ---
WS: [id number] MRI RIGHT KNEE HISTORY: possible loose body COMPARISON: Radiograph 05/11/2023. Anterior cruciate ligament: Abnormal ACL. The ACL is not visualized in its entirety. There is signifi cant impingement upon the mid ACL by narrowing of the joint space. On the axial images a few of the a nterior fibers do appear to be completely intact. There is no full-thickness tear. Posterior cruciate ligament: Intact. Medial collateral ligament: Intact. Posterior lateral corner structures: Intact. Medial menisci: Abnormal posterior horn. Small caliber posterior horn with abnormal signal throughout . Complex tear involving a large portion of the meniscus. Negative anterior horn. Lateral meniscus: Intact. Normal signal, size and shape. Extensor mechanism: Distal quadriceps tendon and patellar tendons are intact. Fluid and soft tissue: Very small suprapatellar joint effusion. Small loose bodies are noted within t he joint effusion. The larger loose body measures 11 mm and was described on the recent radiographs. This is just superior to the patella. Very tiny Castro's cyst. Small amount of increased signal in the semimembranosus tendon insertion site to the tibia. Osseous and articular structures: Patellofemoral compartment: Severe patellofemoral joint space narrowing and loss of cartilage. Small amount of marrow edema in the superior patella. Medial compartment: Marked narrowing of the medial compartment with loss of cartilage. Osteophytes wi th no marrow edema. Lateral compartment: Mild narrowing the lateral compartment with mild chondromalacia. Marginal osteop hytes. No marrow edema. IMPRESSION: 1. Abnormal ACL. There is marked impingement upon the mid ACL. Partial tear is suspected. At least so me of the anterior fibers are still identified although being distorted and displaced by the impingem ent. 2. Complex tear posterior horn medial meniscus. 3. Severe patellofemoral compartment internal derangement with loss of cartilage and edema. 4. Small suprapatellar effusion. There are small loose bodies within the joint effusion. There is a l arger, 11 mm loose body or osteophyte associated with the superior patella. 5. Tiny Castro's cyst. Small amount of increased T2 signal at the semimembranous tendon insertion. 6. Marked medial compartment internal derangement. Joint space is narrowed with loss of cartilage.
== END 2023-06-07 09:05 | disposition home or self-care (01) ==
PROVIDERS: PCP Emergency Medicine Emergency Medical Services; Visit Provider Specialist
DX: S83.231A Complex tear of medial meniscus, current injury, right knee, initial encounter (principal); X58.XXXA Exposure to other specified factors, initial encounter; R93.6 Abnormal findings on diagnostic imaging of limbs; M23.8X1 Other internal derangements of right knee; M25.461 Effusion, right knee; M23.41 Loose body in knee, right knee; M71.21 Synovial cyst of popliteal space [Baker], right knee
CPT/HCPCS: 73721

== ENCOUNTER → 2023-06-23 09:48 | Outpatient (BNVA) | payer OTHER, SELFPAY | PROVIDERS: PCP Emergency Medicine Emergency Medical Services; Visit Provider Specialist | DX: M19.012 Primary osteoarthritis, left shoulder (principal); Z71.89 Other specified counseling | CPT/HCPCS: 20610; J1100; J2795; J3301 ==

== ENCOUNTER → 2023-06-27 08:13 | Outpatient (BNVA) | payer OTHER, SELFPAY | PROVIDERS: PCP Emergency Medicine Emergency Medical Services; Visit Provider Specialist | DX: M17.11 Unilateral primary osteoarthritis, right knee (principal); Z09 Encounter for follow-up examination after completed treatment for conditions other than malignant neoplasm | CPT/HCPCS: 99213 ==

== ENCOUNTER → 2023-08-04 08:09 | Outpatient (BNVA) | payer OTHER, SELFPAY | PROVIDERS: PCP Emergency Medicine Emergency Medical Services; Visit Provider Specialist | DX: G43.711 Chronic migraine without aura, intractable, with status migrainosus (principal); G30.9 Alzheimer's disease, unspecified; F02.80 Dementia in other diseases classified elsewhere, unspecified severity, without behavioral disturbance, psychotic disturbance, mood disturbance, and anxiety | CPT/HCPCS: 64615; 99212; J0585 ==

== ENCOUNTER → 2023-10-13 09:43 | Outpatient (BNVA) | payer OTHER, SELFPAY | PROVIDERS: PCP Emergency Medicine Emergency Medical Services; Visit Provider Specialist | DX: M19.012 Primary osteoarthritis, left shoulder (principal); Z71.89 Other specified counseling | CPT/HCPCS: 20610; J1100; J2795; J3301 ==

== ENCOUNTER 2023-11-02 11:06 | Emergency (ER) | payer OTHER, SELFPAY ==
[2023-11-02 11:07] VITALS: BP 113/85; PULSE 77; RESP 18; TEMP 36.7; O2SAT 95; BMI 29.7
--- NOTE | 2023-11-02 11:11 | CT_ITS ---
WS: [id number] CT HEAD NONCONTRAST HISTORY: weakness TECHNIQUE: Contiguous axial imaging performed through the brain in 2.5 mm imaging. Bone and soft tiss ue windows. Sagittal and coronal reformats reviewed. All CT scans at [facility] use at least one of these dose optimization techniques: automated exposure control; mA and/or kV adjustment per pa tient size (includes targeted exams where dose is matched to clinical indication); or iterative recon struction. DLP: 1060.90 mGy.cm COMPARISON: None available. No acute intracranial hemorrhage, midline shift or mass effect. Moderate atrophy with extensive small vessel ischemic disease. Prior lacunar infarct in the RIGHT karen lamus. Prior lacunar infarcts in the external capsules bilaterally. Ventricles: Moderately dilated ventricles. No intra displacement the cerebellar tonsils. Paranasal sinuses: Mild mucoperiosteal thickening in the RIGHT maxillary sinus. No air-fluid levels. Mastoid air cells: Well pneumatized. Calvarium and scalp: Skull is intact with no soft tissue edema or swelling. IMPRESSION: 1. No acute intracranial hemorrhage or edema. 2. Moderate ventriculomegaly. Probably on the basis of atrophy. Early changes of normal pressure hyd rocephalus may appear similar. 3. Extensive small vessel ischemic disease with multiple small lacunar infarcts.
--- NOTE | 2023-11-02 11:11 | XRR_ITS ---
PROCEDURE INFORMATION: Exam: XR Chest Exam date and time: 11/02/2023 11:15 AM Age: 83 years old Clinical indication: Other: Weakness TECHNIQUE: Imaging protocol: Radiologic exam of the chest. Views: 1 view. COMPARISON: CR (CHEST, ) 05/08/2023 10:45 AM FINDINGS: Lungs: See Heart/Mediastinum finding. Pleural spaces: Unremarkable. No pleural effusion. No pneumothorax. Heart/Mediastinum: There is evidence of cardiomegaly and both lungs demonstrate chronic interstitial coarsening. No lung mass or infiltrate. Bones/joints: Unremarkable. XR/XR chest 1V portable [id number] IMPRESSION: I see no acute abnormality. Cardiomegaly with chronic lung changes
--- NOTE | 2023-11-02 11:12 | ECG_ITS ---
[facility] Test Date: 2023-11-02 Pat Name: Reid Farooq Department: Room: Gender: Male Appraisal Technician: : 1940 Requested By: Monik Augustin Order Number: [id number] Antonio MD: Rodrigue Zhou M.D. Measurements Intervals [place] Rate: 73 P: 0 VT: 0 QRS: 58 QRSD: 153 T: -6 QT: 412 QTc: 456 Interpretive Statements ATRIAL FIBRILLATION RIGHT BUNDLE BRANCH BLOCK [120+ ms QRS DURATION, UPRIGHT V1, 40+ ms S IN I/aVL/V4/V5/V6] Compared to ECG 05/08/2023 12:44:59 Right bundle-branch block now present Ventricular premature complex(es) no longer present Aberrant conduction of supraventricular beat(s) no longer present Intraventricular conduction delay no longer present Myocardial infarct finding no longer present Electronically Signed On 11-02-2023 18:30:40 RECREATIONAL RESORT MANAGER by Rodrigue Zhou M.D. [id number]
[2023-11-02] MEDS: sodium chloride 0.9% 1,000 ML 999 ML IV (11:25)
[2023-11-02 11:28] LABS: Basophils % 0.3 %; Eosinophils # 0.1 10^3/uL (0.0-0.8); Eosinophils % 1.9 %; Lymphocytes # 3.5 10^3/uL (0.8-4.8); Mean Corpuscular HGB Conc 34.8 g/dL (30-55); Mean Corpuscular Hemoglobin 32.3 pg (27-33); Mean Corpuscular Volume 92.8 fl (82-101); Mean Platelet Volume 9.4 fL (7.4-10.4); Monocytes # 0.5 10^3/uL (0.2-0.9); Monocytes % 6.9 %; Neutrophils # 2.62 10^3/uL (1.8-7.7); Neutrophils % 38.8 %; Nucleated Red Blood Cells % 0 %; Platelet Count 201 10^3/cmm (157-399); Red Blood Count 4.31 10^6/uL (3.85-5.65); Red Cell Distribution Width 12.1 % (12.1-15.1); White Blood Count 6.77 10^3/uL (3.29-11.43)
--- NOTE | 2023-11-02 11:30 | ED_ITS ---
HPI - Weakness 2 General: Chief complaint: Weakness Stated complaint: WEAKNESS Time Seen by Provider: 11/02/23 11:08 Source: patient and EMS Mode of arrival: EMS Limitations: no limitations History of Present Illness: 83-year-old male has a history of Alzhei ho's he is at [facility] this morning with his and had a near syncopal event states he had felt weak diaphoretic and like he is in a pass out EMS states that when they arrived and stood him he again had a vagal episode and felt like he was going to pass out he states he feels much improved currently. He denies any headache denies any chest pain denies any fevers Associated symptoms: Denies chest pain, chills, dysuria, fever(s), headache(s), nausea or vomiting Review of Systems 2 Const: Denies: fever(s), chills, body aches or change in appetite Eyes: Denies: blurry vision or eye discomfort ENMT: Denies: throat pain or dental pain Card: Reports: lightheadedness and pre-syncope; Denies: chest pain Resp: Denies: dyspnea GI: Denies: abdominal pain, nausea, vomiting or diarrhea : Denies: dysuria Musc: Denies: neck pain or back pain Skin/Breast: Denies: rash Neuro: Denies: headache(s) PFSH ED 2 PFSH: Medical History Colon polyps History of nonmelanoma skin cancer DJD (degenerative joint disease) Headache Numbness and tingling BPH (benign prostatic hyperplasia) Atrial fibrillation COPD (chronic obstructive pulmonary disease) Mild cognitive impairment Hyperlipidemia Hypertension History of fracture of lower extremity Surgical History Status post colonoscopy (10/30/21) History of open reduction and internal fixation (ORIF) procedure lle History of rhinoplasty Family History Other Chronic headaches Diabetes Memory loss Social History Smoking and tobacco/nicotine status: never used tobacco/nicotine Alcohol intake: never Substance/Drug Use: never Household members: spouse Marital status: Physical Exam 2 Const: COMMON NORMALS: no acute distress and healthy appearing HENMT: COMMON NORMALS: normocephalic and atraumatic HEAD & SCALP: n ormocephalic and atraumatic Eye: COMMON NORMALS: Equal, round and reactive pupils present and EOMs intact bilaterally PUPIL: Yes Equal, round and reactive pupils present Neck/C-Spine: COMMON NORMALS: full ROM and supple Chest: COMMONS NORMALS: normal inspection of the chest and normal palpation of entire chest wall Resp: COMMON NORMALS: normal respiratory effort, No retractions, No use of accessory muscles and clear to auscultation bilaterally AUSCULTATION: clear to auscultation bilaterally Cardio: COMMON NORMALS: regular rate, regular rhythm and No murmurs present (Cardio) RATE: regular rate RHYTHM: regular rhythm GI: COMMON NORMALS: Normal to inspection, nondistended, normoactive bowel sounds present, Soft to palpation, non-tender and no masses PALPATION: Yes Soft to palpation Extremity: COMMON NORMALS: normal to inspection and full ROM Neuro: COMMON NORMALS: moves all extremities and no focal motor deficits Psych: COMMON NORMALS: Normal thought process present and cooperative T HOUGHT PROCESS: Normal thought process present Skin: COMMON NORMALS: no rashes or lesions noted and no wounds GENERAL SKIN EXAM: no rashes or lesions noted Course 2 Vital Signs: Vital signs: Vital Signs Temperature 98.1 F 11/02/23 11:07 Pulse Rate 85 11/02/23 13:13 Respiratory Rate 18 11/02/23 11:07 Blood Pressure 105/77 11/02/23 13:13 Pulse Oximetry 95 11/02/23 13:13 Oxygen Delivery Me thod Room Air 11/02/23 11:07 MDM - Weakness Medical Decision Making Patient presents with a near syncopal event he is well-appearing here his orthostatics are much improved here blood work imaging is all normal he is stable for discharge she is follow-up with PCP and return if worsening he understands agrees to plan. Medical Records I reviewed the patient's medical records. Lab Data I reviewed the patient's lab results. 11/02/23 11:13 11/02/23 11:13 Radiology Impressions Chest X-Ray 11/02/23 11:11 IMPRESSION: I see no acute abnormality. Cardiomegaly with chronic lung changes Laboratory Results WBC 6.77 10^3/uL (3.29-11.43) 11/02/23 11:13 RBC 4.31 10^6/uL (3.85-5.65) 11/02/23 11:13 Hgb 13.90 g/dL (11.27-16.99) 11/02/23 11:13 Hct 40.0 % (37-53) 11/02/23 11:13 MCV 92.8 fl (82-101) 11/02/23 11:13 MCH 32.3 pg (27-33) 11/02/23 11:13 MCHC 34.8 g/dL (30-55) 11/02/23 11:13 RDW 12.1 % (12.1-15.1) 11/02/23 11:13 Plt Count 201 10^3/cmm (157-399) 11/02/23 11:13 MPV 9.4 fL (7.4-10.4) 11/02/23 11:13 Neut % (Auto) 38.8 % 11/02/23 11:13 Lymph % (Auto) 52.0 % 11/02/23 11:13 [place] % (Auto) 6.9 % 11/02/23 11:13 Eos % (Auto) 1.9 % 11/02/23 11:13 Baso % (Auto) 0.3 % 11/02/23 11:13 Neut # (Auto) 2.62 10^3/uL (1.8-7.7) 11/02/23 11:13 Lymph # (Auto) 3.5 10^3/uL (0.8-4.8) 11/02/23 11:13 [place] # (Auto) 0.5 10^3/uL (0.2-0.9) 11/02/23 11:13 Eos # (Auto) 0.1 10^3/uL (0.0-0.8) 11/02/23 11:13 Baso # (Auto) 0.0 10^3/uL (0.0-0.1) 11/02/23 11:13 Nucleated RBC % (auto) 0 % 11/02/23 11:13 Nucleated RBCs # 0.0 /100WBC 11/02/23 11:13 PT 16.20 SECONDS (12.1-14.9) H 11/02/23 11:13 INR 1.26 (0.8-1.2) H 11/02/23 11:13 Sodium 139 mmol/L (136-145) 11/02/23 11:13 Potassium 3.8 mmol/L (3.5-5.1) 11/02/23 11:13 Chloride 104 mmol/L (98-107) 11/02/23 11:13 Carbon Dioxide 24 mmol/L (22-29) 11/02/23 11:13 Anion Gap 14.8 (5-19) 11/02/23 11:13 BUN 12 mg/dL (8-23) 11/02/23 11:13 Creatinine 0.7 mg/dL (0.7-1.2) 11/02/23 11:13 GFR Calculation Not Reportable 11/02/23 11:13 Glucose 129 mg/dL (65-115) H 11/02/23 11:13 Calculated Osmolality 289 mOsm/kg (285-295) 11/02/23 11:13 Calcium 9.4 mg/dL (8.5-10.5) 11/02/23 11:13 Total Bilirubin 0.3 mg/dL (0.15-1.2) 11/02/23 11:13 AST 20 U/L (0-40) 11/02/23 11:13 ALT 15 U/L (0-41) 11/02/23 11:13 Alkaline Phosphatase 68 U/L (40-130) 11/02/23 11:13 Total Protein 6.4 g/dL (6.6-8.7) L 11/02/23 11:13 Albumin 3.7 g/dL (3.5-5.2) 11/02/23 11:13 Globulin 2.7 g/dL (1.3-4.6) 11/02/23 11:13 All radiology interpretation(s) finalized by discharge Discharge Plan Discharge Patient Disposition: Home Clinical Impression: Near syncope Condition: Stable Prescriptions: No Action calcium polycarbophil 625 mg tablet 1,250 mg PO DAILY PRN (Reason: unknown) docusate sodium 50 mg capsule 50 mg PO TID PRN (Reason: Constipation) polyethylene glycol 3350 [Miralax] 17 gram/dose powder 17 g PO DAILY PRN (Reason: Constipation) azelastine 137 mcg (0.1 %) aerosol,spray 1 spray INTRANASAL BID PRN (Reason: unknown) cetirizine 10 mg tablet 10 mg PO QPM Combivent Respimat 20-100 mcg/actuation mist 1 puff INHALATION QID cholecalciferol (vitamin D3) 25 mcg (1,000 unit) capsule 1,000 unit PO QAM folic acid 400 mcg tablet 400 mcg PO QAM multivitamin Tablet 1 tab PO QAM omeprazole 20 mg capsule,delayed release(DR/EC) 20 mg PO QAM pravastatin 40 mg tablet 40 mg PO QPM Refresh Liquigel 1 % drops, liquid gel 2 drop ophthalmic (eye) QID Xarelto 20 mg tablet 20 mg PO QPM Hold Instructions: Resume on 11/01/21. (DME) Accomodative inserts See Rx Instructions .Route .MEDSUPPLY Qty: 1 0RF Rx Instructions: As directed galantamine 12 mg tablet 12 mg PO BID Qty: 180 3RF (DME) diabetic shoes See Rx Instructions .Route .MEDSUPPLY Qty: 1 0RF Rx Instructions: As directed memantine [Namenda] 10 mg tablet 10 mg PO BID Qty: 180 2RF metoprolol tartrate 25 mg tablet 25 mg PO DAILY glucosamine-chondroitin [Osteo Bi-Flex] 250-200 mg Tablet 1 tab PO QAM magnesium oxide 400 mg magnesium Tablet 400 mg PO QAM Aimovig Autoinjector 140 mg/mL auto-injector 140 mg SUBCUT Q30D Rx Instructions: Subcutaneous each month Discharge Orders: Discharge ED (Routine); Ordered 11/02/23 Ordered By: Monik Augustin Referrals: Pavel Randall, [Primary Care Provider] - 4-7 days Discharge Diet: Advance as tolerated Discharge Activity: Resume usual activity Patient Instructions: Near Syncope (ED) Coding Level of Care Code ED Hide Worker for Wesly Longoria
[2023-11-02 11:40] LABS: INR 1.26 (0.8-1.2)
--- NOTE | 2023-11-02 11:48 | PC.PHAR ---
PT IS [facility] BUT SPOUSE DOES CARRY MEDICATION LIST WITH HER. 11/02/23
[2023-11-02 11:52] LABS: Alanine Aminotransferase 15 U/L (0-41); Albumin Level 3.7 g/dL (3.5-5.2); Alkaline Phosphatase 68 U/L (40-130); Blood Urea Nitrogen 12 mg/dL (8-23); Calcium 9.4 mg/dL (8.5-10.5); Carbon Dioxide 24 mmol/L (22-29); Chloride 104 mmol/L (98-107); Globulin 2.7 g/dL (1.3-4.6); Glucose 129 mg/dL (65-115); Osmolality Calculated 289 mOsm/kg (285-295); Sodium 139 mmol/L (136-145); Total Bilirubin 0.3 mg/dL (0.15-1.2); Total Protein 6.4 g/dL (6.6-8.7)
[2023-11-02 11:59] LABS: Anion Gap 14.8 (5-19); Aspartate Amino Transferase 20 U/L (0-40); Potassium 3.8 mmol/L (3.5-5.1)
[2023-11-02 12:47] VITALS: BP 102/68; BP 109/93; BP 116/88; PULSE 88; PULSE 92; PULSE 93
[2023-11-02 13:13] VITALS: BP 105/77; PULSE 85; O2SAT 95
== END 2023-11-02 13:14 | disposition home or self-care (01) ==
PROVIDERS: Emergency Provider Emergency Medicine; PCP Emergency Medicine Emergency Medical Services
DX: R55 Syncope and collapse (principal); J44.9 Chronic obstructive pulmonary disease, unspecified; E78.5 Hyperlipidemia, unspecified; I10 Essential (primary) hypertension
CPT/HCPCS: 70450; 71045; 80053; 85025; 85610; 93005; 99285; J7030

== ENCOUNTER → 2023-11-03 07:57 | Outpatient (BNVA) | payer OTHER, SELFPAY | PROVIDERS: PCP Emergency Medicine Emergency Medical Services; Visit Provider Specialist | DX: G30.9 Alzheimer's disease, unspecified (principal); F02.80 Dementia in other diseases classified elsewhere, unspecified severity, without behavioral disturbance, psychotic disturbance, mood disturbance, and anxiety; G43.711 Chronic migraine without aura, intractable, with status migrainosus | CPT/HCPCS: 64615; 99212; J0585 ==

== ENCOUNTER → 2023-12-02 09:50 | Outpatient (BNVA) | payer OTHER, SELFPAY | PROVIDERS: PCP Emergency Medicine Emergency Medical Services; Visit Provider Nurse Practitioner Family | DX: I10 Essential (primary) hypertension (principal); I48.21 Permanent atrial fibrillation; Z79.01 Long term (current) use of anticoagulants | CPT/HCPCS: 99214 ==

== ENCOUNTER → 2024-01-27 08:47 | Outpatient (BNVA) | payer OTHER, SELFPAY | PROVIDERS: PCP Emergency Medicine Emergency Medical Services; Visit Provider Specialist | DX: M19.012 Primary osteoarthritis, left shoulder (principal); Z71.89 Other specified counseling | CPT/HCPCS: 20610; J1100; J2795; J3301 ==

== ENCOUNTER → 2024-02-02 08:44 | Outpatient (BNVA) | payer OTHER, SELFPAY | PROVIDERS: PCP Emergency Medicine Emergency Medical Services; Visit Provider Specialist | DX: G30.9 Alzheimer's disease, unspecified (principal); G43.711 Chronic migraine without aura, intractable, with status migrainosus; G31.84 Mild cognitive impairment of uncertain or unknown etiology | CPT/HCPCS: 64615; 99212; J0585 ==

== ENCOUNTER → 2024-04-23 09:15 | Outpatient (BNVA) | payer OTHER, SELFPAY | PROVIDERS: PCP Emergency Medicine Emergency Medical Services; Visit Provider Podiatrist Foot & Ankle Surgery | DX: B35.1 Tinea unguium (principal) | CPT/HCPCS: 99203 ==

== ENCOUNTER → 2024-05-03 08:24 | Outpatient (BNVA) | payer OTHER, SELFPAY | PROVIDERS: PCP Emergency Medicine Emergency Medical Services; Visit Provider Nurse Practitioner Family | DX: L82.1 Other seborrheic keratosis (principal); D22.5 Melanocytic nevi of trunk; L57.8 Other skin changes due to chronic exposure to nonionizing radiation; L57.0 Actinic keratosis; M67.40 Ganglion, unspecified site; B35.3 Tinea pedis; L81.4 Other melanin hyperpigmentation; Z85.828 Personal history of other malignant neoplasm of skin | CPT/HCPCS: 17000; 99214 ==

== ENCOUNTER → 2024-05-04 10:36 | Outpatient (BNVA) | payer OTHER, SELFPAY | PROVIDERS: PCP Emergency Medicine Emergency Medical Services; Visit Provider Specialist | DX: M19.012 Primary osteoarthritis, left shoulder (principal) | CPT/HCPCS: 20610; J1100; J2795; J3301 ==

== ENCOUNTER 2024-05-19 18:11 | Emergency (ER) | payer OTHER, MEDICARE, SELFPAY ==
[2024-05-19 18:13] VITALS: BP 116/76; PULSE 121; RESP 16; TEMP 36.7; O2SAT 97; BMI 27.4
--- NOTE | 2024-05-19 18:30 | CTR_ITS ---
PROCEDURE INFORMATION: Exam: CT Head Without Contrast Exam date and time: 05/19/2024 6:45 PM Age: 84 years old Clinical indication: Altered mental status/memory loss; Confusion or disorientation; Patient HX: Increasing confusion and general weakness over the last two days. ; Additional info: Altered mental status increased confusion TECHNIQUE: Imaging protocol: Computed tomography of the head without contrast. Radiation optimization: All CT scans at this facility use at least one of these dose optimization techniques: automated exposure control; mA and/or kV adjustment per patient size (includes targeted exams where dose is matched to clinical indication); or iterative reconstruction. COMPARISON: CT head wo con* [id number] 11/02/2023 11:27 AM RADIATION DOSE METRICS: Total DLP (mGy-cm): 1189.16 FINDINGS: Brain: Subcortical and periventricular white matter changes consistent with small-vessel ischemic disease in the appropriate clinical setting. Small-vessel ischemic disease. No acute intracranial abnormality. Cerebral ventricles: No ventriculomegaly. Paranasal sinuses: Visualized sinuses are unremarkable. No fluid levels. Mastoid air cells: Visualized mastoid air cells are well aerated. Bones: Unremarkable. No acute fracture. Soft tissues: Unremarkable. CT/CT head wo con* [id number] IMPRESSION: 1. No acute intracranial abnormality. 2. Small-vessel ischemic disease.
--- NOTE | 2024-05-19 18:30 | XRR_ITS ---
PROCEDURE INFORMATION: Exam: XR Chest Exam date and time: 05/19/2024 6:38 PM Age: 84 years old Clinical indication: Cough; Additional info: Increasing confusion; AMS; Cough TECHNIQUE: Imaging protocol: Radiologic exam of the chest. Views: 1 view. COMPARISON: CR XR chest 1V portable [id number] 11/02/2023 11:15 AM FINDINGS: Lungs: No focal consolidation. Increased interstitial markings with peribronchial cuffing in the lung bases are nonspecific but can be seen the setting of bronchitis, pulmonary vascular congestion, viral infection and small-vessel airways disease. Pleural spaces: Unremarkable. No pleural effusion. No pneumothorax. Heart/Mediastinum: Unremarkable. No cardiomegaly. 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 XR/XR chest 1V portable [id number] IMPRESSION: 1. No focal consolidation. 2. Increased interstitial markings with peribronchial cuffing in the lung bases are nonspecific but can be seen the setting of bronchitis, pulmonary vascular congestion, viral infection and small-vessel airways disease.
--- NOTE | 2024-05-19 18:36 | ED_ITS ---
Documented by User: Anthony Donald 05/19/24 22:09 HPI - Altered Mental Status 2 General: Chief Complaint: Altered Mental Status Stated Complaint: AMS Time Seen by Provider: 05/19/24 18:17 History of Present Illness: 84-year-old male presents to the ER with his present chief complaint increased confusion and altered mental status. [facility] which was concerned about his mental status changes and confusion that suggest he come to the closest ER for further assessment and management the patient has had no recent infections or illnesses he has had no recent falls or trauma per the patient has no prior history of diabetes does report a prior history of hypertension in which she presents per the the patient has had slightly reduced appetite and oral intake next couple the last couple of days in which the patient has been somewhat bedbound due to significant weakness in which the patient presents to the ER for further assessment and management. Associated symptoms: Deny depression Related Data Home Medications Medication Instructions Recorded Confirmed azelastine 137 mcg (0.1 %) nasal 1 spray intranasal BID PRN unknown 12/25/19 05/04/24 spray carboxymethylcellulose sodium 1 % 2 drop ophthalmic (eye) QID 12/25/19 05/04/24 eye liquid gel drops (Refresh Liquigel) cetirizine 10 mg tablet 10 mg PO QPM 12/25/19 05/04/24 cholecalciferol (vitamin D3) 25 1,000 unit PO QAM 12/25/19 05/04/24 mcg (1,000 unit) capsule folic acid 400 mcg tablet 400 mcg PO QAM 12/25/19 05/04/24 ipratropium 20 mcg-albuterol 100 1 puff inhalation QID 12/25/19 05/04/24 mcg/actuation mist for inhalation (Combivent Respimat) multivitamin 1 tab PO QAM 12/25/19 05/04/24 omeprazole 20 mg capsule,delayed 20 mg PO QAM 12/25/19 05/04/24 release pravastatin 40 mg tablet 40 mg PO QPM 12/25/19 05/04/24 rivaroxaban 20 mg tablet (Xarelto) 20 mg PO QPM 12/25/19 05/04/24 calcium polycarbophil 625 mg tablet 1,250 mg PO DAILY PRN unknown 09/08/21 05/04/24 docusate sodium 50 mg capsule 50 mg PO TID PRN Constipation 09/08/21 05/04/24 polyethylene glycol 3350 17 17 g PO DAILY PRN Constipation 09/08/21 05/04/24 gram/dose oral powder (Miralax) glucosamine-chondroitin 250 mg-200 1 tab PO QAM 05/08/23 05/04/24 mg tablet (Osteo Bi-Flex) magnesium oxide 400 mg PO QAM 05/08/23 05/04/24 metoprolol tartrate 25 mg tablet 25 mg PO BID PRN 12/02/23 05/04/24 Previous Rx's Medication Instructions Recorded Accomodative inserts #1 ea 07/03/20 diabetic shoes #1 ea 09/16/20 erenumab-aooe 140 mg/mL 140 mg SUBCUT Q30D #1 mL 02/02/24 subcutaneous auto-injector (Aimovig Autoinjector) galantamine 12 mg tablet 12 mg PO BID #180 tabs 02/02/24 memantine 10 mg tablet 10 mg PO BID #180 tabs 02/02/24 metoprolol tartrate 25 mg tablet 12.5 mg (1/2 x 25 mg) PO BID #30 05/19/24 tabs Allergies Allergy/AdvReac Type Severity Reaction Status Date / Time codeine Allergy Vomit Verified 05/19/24 18:23 Review of Systems 2 General: Reports: 10 or more systems reviewed and unremarkable except in HPI and below Const: Reports: fatigue and malaise; Denies: fever(s) or chills Eyes: Denies: change in vision or blurry vision Card: Denies: chest pain or palpitations Resp: Denies: dyspnea or productive cough GI: Denies: abdominal pain, nausea or vomiting : Denies: flank pain Musc: Denies: extremity pain or extremity swelling Skin/Breast: Denies: rash or pruritus Neuro: Reports: lack of coordination and confusion; Denies: headache(s) Psych: Denies: anxiety or depression John/Lymph: Denies: easy bleeding All/Imm: Denies: urticaria, throat swelling or facial swelling PFSH ED 2 PFSH: Medical History Colon polyps History of nonmelanoma skin cancer DJD (degenerative joint disease) Headache Numbness and tingling BPH (benign prostatic hyperplasia) Atrial fibrillation COPD (chronic obstructive pulmonary disease) Mild cognitive impairment Hyperlipidemia Hypertension History of fracture of lower extremity Surgical History Status post colonoscopy (10/30/21) History of open reduction and internal fixation (ORIF) procedure lle History of rhinoplasty Family History Other Chronic headaches Diabetes Memory loss Social History Smoking and tobacco/nicotine status: former use of tobacco/nicotine Alcohol intake: never Substance/Drug Use: never Household members: spouse Marital status: Physical Exam 2 Const: COMMON NORMALS: no acute distress and healthy appearing; negative for patient oriented x3 (Alert oriented x 2 no focal neurodeficits appreciated) HENMT: COMMON NORMALS: normocephalic and atraumatic HEAD & SCALP: n ormocephalic and atraumatic Eye: COMMON NORMALS: Equal, round and reactive pupils present and EOMs intact bilaterally PUPIL: Yes Equal, round and reactive pupils present Neck/C-Spine: COMMON NORMALS: full ROM, supple and no JVD Lymph: LYMPHATIC: no lymphadenopathy noted Chest: COMMONS NORMALS: normal inspection of the chest and normal palpation of entire chest wall Resp: COMMON NORMALS: normal respiratory effort, No retractions and clear to auscultation bilaterally EFFORT & INSPECTION: Yes able to speak in complete sentences and Yes symmetric chest movement AUSCULTATION: clear to auscultation bilaterally Cardio: COMMON NORMALS: no JVD, regular rate and regular rhythm RATE: r egular rate RHYTHM: regular rhythm GI: COMMON NORMALS: Normal to inspection, nondistended, normoactive bowel sounds present, Soft to palpation and non-tender INSPECTION: Yes normal to inspection PALPATION: Yes Soft to palpation : COMMON NORMALS: Yes no CVA tenderness BLADDER/KIDNEY EXAM: Yes no CVA tenderness Back/Pelvis: COMMON NORMALS: no CVA tenderness Extremity: COMMON NORMALS: normal to inspection and full ROM Neuro: COMMON NORMALS: CN's II-XII intact bilaterally, moves all extremities and no focal motor deficits; negative for patient oriented x3 (Alert oriented x 2 no focal neurodeficits appreciated) Psych: COMMON NORMALS: mental status grossly normal, Normal thought process present, cooperative and normal affect THOUGHT PROCESS: Normal thought process present Skin: COMMON NORMALS: no rashes or lesions noted GENERAL SKIN EXAM: no rashes or lesions noted Course 2 Vital Signs: Vital signs: Vital Signs Temperature 98.0 F 05/19/24 18:13 Pulse Rate 116 H 05/19/24 23:14 Respiratory Rate 19 H 05/19/24 23:14 Blood Pressure 117/93 05/19/24 23:14 Pulse Oximetry 96 05/19/24 23:14 Oxygen Delivery Me thod Room Air 05/19/24 21:51 MDM - Altered Mental Status Medical Decision Making Discussed patient's case with present at length underlying concerns of advanced dementia with possible underlying UTI or other infection prominent no focal neurodeficit does have a stroke however due to patient's increased weakness and fatigue will be taking a CT of the head without contrast for further eval. Will continue to follow. Patient's imaging came back reassuring patient was found to be in A-fib RVR discussed patient's case with at length patient was on his metoprolol however primary care doctor took him off of it patient does appear to be somewhat dehydrated providing a dose of Lopressor currently waiting 2-hour troponin rule out at this time patient was signed out to my colleague Dr. Barcenas at [phone] anticipate possible discharge home if we can get his A-fib with RVR under control if not patient will need to be admitted and placed on a drip. Lab Data 05/19/24 19:02 05/19/24 19:02 Radiology Impressions Chest X-Ray 05/19/24 18:30 IMPRESSION: 1. No focal consolidation. 2. Increased interstitial markings with peribronchial cuffing in the lung bases are nonspecific but can be seen the setting of bronchitis, pulmonary vascular congestion, viral infection and small-vessel airways disease. Head CT 05/19/24 18:30 IMPRESSION: 1. No acute intracranial abnormality. 2. Small-vessel ischemic disease. Laboratory Results WBC 8.30 10^3/uL (3.29-11.43) 05/19/24 19:02 RBC 4.66 10^6/uL (3.85-5.65) 05/19/24 19:02 Hgb 15.00 g/dL (11.27-16.99) 05/19/24 19:02 Hct 42.9 % (37-53) 05/19/24 19:02 MCV 92.1 fl (82-101) 05/19/24 19:02 MCH 32.2 pg (27-33) 05/19/24 19:02 MCHC 35.0 g/dL (30-55) 05/19/24 19:02 RDW 13.1 % (12.1-15.1) 05/19/24 19:02 Plt Count 199 10^3/cmm (157-399) 05/19/24 19:02 MPV 8.2 fL (7.4-10.4) 05/19/24 19:02 Neut % (Auto) 59.1 % 05/19/24 19:02 Lymph % (Auto) 31.6 % 05/19/24 19:02 Kane % (Auto) 8.4 % 05/19/24 19:02 Eos % (Auto) 0.4 % 05/19/24 19:02 Baso % (Auto) 0.1 % 05/19/24 19:02 Neut # (Auto) 4.91 10^3/uL (1.8-7.7) 05/19/24 19:02 Lymph # (Auto) 2.6 10^3/uL (0.8-4.8) 05/19/24 19:02 Kane # (Auto) 0.7 10^3/uL (0.2-0.9) 05/19/24 19:02 Eos # (Auto) 0.0 10^3/uL (0.0-0.8) 05/19/24 19:02 Baso # (Auto) 0.0 10^3/uL (0.0-0.1) 05/19/24 19:02 Nucleated RBC % (auto) 0 % 05/19/24 19:02 Nucleated RBCs # 0.0 /100WBC 05/19/24 19:02 Sodium 137 mmol/L (136-145) 05/19/24 19:02 Potassium 4.2 mmol/L (3.5-5.1) 05/19/24 19:02 Chloride 101 mmol/L (98-107) 05/19/24 19:02 Carbon Dioxide 26 mmol/L (22-29) 05/19/24 19:02 Anion Gap 14.2 (5-19) 05/19/24 19:02 BUN 11 mg/dL (8-23) 05/19/24 19:02 Creatinine 0.7 mg/dL (0.7-1.2) 05/19/24 19:02 GFR Calculation Not Reportable 05/19/24 19:02 Glucose 130 mg/dL (65-115) H 05/19/24 19:02 Calculated Osmolality 285 mOsm/kg (285-295) 05/19/24 19:02 Lactic Acid 1.3 mmol/L (0.5-2.2) 05/19/24 19:02 Calcium 9.2 mg/dL (8.5-10.5) 05/19/24 19:02 Total Bilirubin 1.0 mg/dL (0.15-1.2) 05/19/24 19:02 AST 15 U/L (0-40) 05/19/24 19:02 ALT 13 U/L (0-41) 05/19/24 19:02 Alkaline Phosphatase 70 U/L (40-130) 05/19/24 19:02 Troponin T Baseline 8 ng/L (0-15) 05/19/24 19:02 Troponin T 120 Minute 6.00 ng/L (0-15) 05/19/24 21:15 Delta Troponin T -2.00 ABS# (0-10) L 05/19/24 21:15 C-Reactive Protein 23.2 mg/L (0.0-4.9) H 05/19/24 19:02 NT-Pro-B Natriuret Pep 973 pg/mL (0-450) H 05/19/24 19:02 Total Protein 5.9 g/dL (6.6-8.7) L 05/19/24 19:02 Albumin 3.7 g/dL (3.5-5.2) 05/19/24 19:02 Globulin 2.2 g/dL (1.3-4.6) 05/19/24 19:02 Urine Color Dark yellow (Yellow) A 05/19/24 19:51 Urine Appearance Clear (CLEAR) 05/19/24 19:51 Urine pH 6.5 (5-7) 05/19/24 19:51 Ur Specific [place] 1.008 (1.005-1.030) 05/19/24 19:51 Urine Protein Negative (Negative) 05/19/24 19:51 Urine Glucose (UA) Negative (Normal) 05/19/24 19:51 Urine Ketones Trace (Negative) 05/19/24 19:51 Urine Blood Negative (Negative) 05/19/24 19:51 Urine Nitrate Negative (Negative) 05/19/24 19:51 Urine Bilirubin Negative (Negative) 05/19/24 19:51 Urine Urobilinogen 1.0 mg/dL (Negative) 05/19/24 19:51 Ur Leukocyte Esterase Negative (Negative) 05/19/24 19:51 Urine RBC 0-2 /hpf (0-2) 05/19/24 19:51 Urine WBC 0-5 /hpf (0-5) 05/19/24 19:51 Ur Squamous Epith Cells 0-5 /hpf (0-5) 05/19/24 19:51 Amorphous Sediment Not Reportable 05/19/24 19:51 Urine Bacteria None seen /hpf (NONE) 05/19/24 19:51 Hyaline Casts 0.40 /lpf 05/19/24 19:51 XR interpretation done by ED provider, pending radiology final review Discharge Plan Discharge Patient Disposition: Home Clinical Impression: Atrial fibrillation Qualifiers: Atrial fibrillation type: permanent Qualified Code(s): I48.21 - Permanent atrial fibrillation Condition: Stable Prescriptions: New metoprolol tartrate 25 mg tablet 12.5 mg PO BID Qty: 30 0RF No Action calcium polycarbophil 625 mg tablet 1,250 mg PO DAILY PRN (Reason: unknown) docusate sodium 50 mg capsule 50 mg PO TID PRN (Reason: Constipation) polyethylene glycol 3350 [Miralax] 17 gram/dose powder 17 g PO DAILY PRN (Reason: Constipation) azelastine 137 mcg (0.1 %) aerosol,spray 1 spray INTRANASAL BID PRN (Reason: unknown) cetirizine 10 mg tablet 10 mg PO QPM Combivent Respimat 20-100 mcg/actuation mist 1 puff INHALATION QID cholecalciferol (vitamin D3) 25 mcg (1,000 unit) capsule 1,000 unit PO QAM folic acid 400 mcg tablet 400 mcg PO QAM multivitamin Tablet 1 tab PO QAM omeprazole 20 mg capsule,delayed release(DR/EC) 20 mg PO QAM pravastatin 40 mg tablet 40 mg PO QPM Refresh Liquigel 1 % drops, liquid gel 2 drop ophthalmic (eye) QID Xarelto 20 mg tablet 20 mg PO QPM Hold Instructions: Resume on 11/01/21. (DME) Accomodative inserts See Rx Instructions .Route .MEDSUPPLY Qty: 1 0RF Rx Instructions: As directed Aimovig Autoinjector 140 mg/mL auto-injector 140 mg SUBCUT Q30D Qty: 1 6RF Rx Instructions: Subcutaneous each month galantamine 12 mg tablet 12 mg PO BID Qty: 180 3RF memantine 10 mg tablet 10 mg PO BID Qty: 180 2RF (DME) diabetic shoes See Rx Instructions .Route .MEDSUPPLY Qty: 1 0RF Rx Instructions: As directed metoprolol tartrate 25 mg tablet 25 mg PO BID PRN glucosamine-chondroitin [Osteo Bi-Flex] 250-200 mg Tablet 1 tab PO QAM magnesium oxide 400 mg magnesium Tablet 400 mg PO QAM Discharge Orders: Discharge ED (Routine); Ordered 05/19/24 Ordered By: Kirk Barcenas Referrals: Pavel Randall DO [Primary Care Provider] - Patient Instructions: A-fib (Atrial Fibrillation) (ED), Altered Mental Status (ED), Opioid Safety, Pain Management Activity Restrictions/Additional Instructions: Medication as directed. Measure heart rate. If heart rate remains below 65, you may discontinue the metoprolol. Return for any problems. Watch for fever, worsening mental status, etc. See your doctor next week. Coding Level of Care Code ED Geospatial Analyst for [facility]g Fwd Documented by User: Krik Barcenas DO 05/20/24 00:26 HPI - Altered Mental Status 2 General: Chief Complaint: Altered Mental Status Stated Complaint: AMS Time Seen by Provider: 05/19/24 18:17 Related Data Home Medications Medication Instructions Recorded Confirmed azelastine 137 mcg (0.1 %) nasal 1 spray intranasal BID PRN unknown 12/25/19 05/04/24 spray carboxymethylcellulose sodium 1 % 2 drop ophthalmic (eye) QID 12/25/19 05/04/24 eye liquid gel drops (Refresh Liquigel) cetirizine 10 mg tablet 10 mg PO QPM 12/25/19 05/04/24 cholecalciferol (vitamin D3) 25 1,000 unit PO QAM 12/25/19 05/04/24 mcg (1,000 unit) capsule folic acid 400 mcg tablet 400 mcg PO QAM 12/25/19 05/04/24 ipratropium 20 mcg-albuterol 100 1 puff inhalation QID 12/25/19 05/04/24 mcg/actuation mist for inhalation (Combivent Respimat) multivitamin 1 tab PO QAM 12/25/19 05/04/24 omeprazole 20 mg capsule,delayed 20 mg PO QAM 12/25/19 05/04/24 release pravastatin 40 mg tablet 40 mg PO QPM 12/25/19 05/04/24 rivaroxaban 20 mg tablet (Xarelto) 20 mg PO QPM 12/25/19 05/04/24 calcium polycarbophil 625 mg tablet 1,250 mg PO DAILY PRN unknown 09/08/21 05/04/24 docusate sodium 50 mg capsule 50 mg PO TID PRN Constipation 09/08/21 05/04/24 polyethylene glycol 3350 17 17 g PO DAILY PRN Constipation 09/08/21 05/04/24 gram/dose oral powder (Miralax) glucosamine-chondroitin 250 mg-200 1 tab PO QAM 05/08/23 05/04/24 mg tablet (Osteo Bi-Flex) magnesium oxide 400 mg PO QAM 05/08/23 05/04/24 metoprolol tartrate 25 mg tablet 25 mg PO BID PRN 12/02/23 05/04/24 Previous Rx's Medication Instructions Recorded Accomodative inserts #1 ea 07/03/20 diabetic shoes #1 ea 09/16/20 erenumab-aooe 140 mg/mL 140 mg SUBCUT Q30D #1 mL 02/02/24 subcutaneous auto-injector (Aimovig Autoinjector) galantamine 12 mg tablet 12 mg PO BID #180 tabs 02/02/24 memantine 10 mg tablet 10 mg PO BID #180 tabs 02/02/24 metoprolol tartrate 25 mg tablet 12.5 mg (1/2 x 25 mg) PO BID #30 05/19/24 tabs Allergies Allergy/AdvReac Type Severity Reaction Status Date / Time codeine Allergy Vomit Verified 05/19/24 18:23 PFS ED 2 PFSH: Medical History Colon polyps History of nonmelanoma skin cancer DJD (degenerative joint disease) Headache Numbness and tingling BPH (benign prostatic hyperplasia) Atrial fibrillation COPD (chronic obstructive pulmonary disease) Mild cognitive impairment Hyperlipidemia Hypertension History of fracture of lower extremity Surgical History Status post colonoscopy (10/30/21) History of open reduction and internal fixation (ORIF) procedure lle History of rhinoplasty Family History Other Chronic headaches Diabetes Memory loss Social History Smoking and tobacco/nicotine status: former use of tobacco/nicotine Alcohol intake: never Substance/Drug Use: never Household members: spouse Marital status: Course 2 Vital Signs: Vital signs: Vital Signs Temperature 98.0 F 05/19/24 18:13 Pulse Rate 116 H 05/19/24 23:14 Respiratory Rate 19 H 05/19/24 23:14 Blood Pressure 117/93 05/19/24 23:14 Pulse Oximetry 96 05/19/24 23:14 Oxygen Delivery Me thod Room Air 05/19/24 21:51 MDM - Altered Mental Status Medical Decision Making Discussed patient's case with present at length underlying concerns of advanced dementia with possible underlying UTI or other infection prominent no focal neurodeficit does have a stroke however due to patient's increased weakness and fatigue will be taking a CT of the head without contrast for further eval. Will continue to follow. Patient's imaging came back reassuring patient was found to be in A-fib RVR discussed patient's case with at length patient was on his metoprolol however primary care doctor took him off of it patient does appear to be somewhat dehydrated providing a dose of Lopressor currently waiting 2-hour troponin rule out at this time patient was signed out to my colleague Dr. Barcenas at [phone] anticipate possible discharge home if we can get his A-fib with RVR under control if not patient will need to be admitted and placed on a drip. After IV metoprolol, patient's heart rate is down around 100 or less. He is experiencing some agitation, likely sundowning type behavior. Otherwise seems improved. He is not hypoxic. Delta troponin is not significant. Urinalysis is negative. CBC and BMP are not remarkable. Lactic acid is 1.3. BNP is 973. With improvement in rate, nonhypoxic status, he will be allowed discharge. He would likely need some sort of rate control. He will be prescribed metoprolol at half of his previous dose. Lab Data 05/19/24 19:02 05/19/24 19:02 Radiology Impressions Chest X-Ray 05/19/24 18:30 IMPRESSION: 1. No focal consolidation. 2. Increased interstitial markings with peribronchial cuffing in the lung bases are nonspecific but can be seen the setting of bronchitis, pulmonary vascular congestion, viral infection and small-vessel airways disease. Head CT 05/19/24 18:30 IMPRESSION: 1. No acute intracranial abnormality. 2. Small-vessel ischemic disease. Laboratory Results WBC 8.30 10^3/uL (3.29-11.43) 05/19/24 19: RBC 4.66 10^6/uL (3.85-5.65) 05/19/24 19:02 Hgb 15.00 g/dL (11.27-16.99) 05/19/24 19:02 Hct 42.9 % (37-53) 05/19/24 19: MCV 92.1 fl (82-101) 05/19/24 19: MCH 32.2 pg (27-33) 05/19/24 19:02 MCHC 35.0 g/dL (30-55) 05/19/24 19:02 RDW 13.1 % (12.1-15.1) 05/19/24 19:02 Plt Count 199 10^3/cmm (157-399) 05/19/24 19:02 MPV 8.2 fL (7.4-10.4) 05/19/24 19:02 Neut % (Auto) 59.1 % 05/19/24 19: Lymph % (Auto) 31.6 % 05/19/24 19:02 Kane % (Auto) 8.4 % 05/19/24 19:02 Eos % (Auto) 0.4 % 05/19/24 19:02 Baso % (Auto) 0.1 % 05/19/24 19:02 Neut # (Auto) 4.91 10^3/uL (1.8-7.7) 05/19/24 19:02 Lymph # (Auto) 2.6 10^3/uL (0.8-4.8) 05/19/24 19:02 Kane # (Auto) 0.7 10^3/uL (0.2-0.9) 05/19/24 19:02 Eos # (Auto) 0.0 10^3/uL (0.0-0.8) 05/19/24 19:02 Baso # (Auto) 0.0 10^3/uL (0.0-0.1) 05/19/24 19:02 Nucleated RBC % (auto) 0 % 05/19/24 19:02 Nucleated RBCs # 0.0 /100WBC 05/19/24 19:02 Sodium 137 mmol/L (136-145) 05/19/24 19:02 Potassium 4.2 mmol/L (3.5-5.1) 05/19/24 19:02 Chloride 101 mmol/L (98-107) 05/19/24 19:02 Carbon Dioxide 26 mmol/L (22-29) 05/19/24 19:02 Anion Gap 14.2 (5-19) 05/19/24 19:02 BUN 11 mg/dL (8-23) 05/19/24 19:02 Creatinine 0.7 mg/dL (0.7-1.2) 05/19/24 19:02 GFR Calculation Not Reportable 05/19/24 19:02 Glucose 130 mg/dL (65-115) H 05/19/24 19:02 Calculated Osmolality 285 mOsm/kg (285-295) 05/19/24 19:02 Lactic Acid 1.3 mmol/L (0.5-2.2) 05/19/24 19:02 Calcium 9.2 mg/dL (8.5-10.5) 05/19/24 19:02 Total Bilirubin 1.0 mg/dL (0.15-1.2) 05/19/24 19:02 AST 15 U/L (0-40) 05/19/24 19:02 ALT 13 U/L (0-41) 05/19/24 19:02 Alkaline Phosphatase 70 U/L (40-130) 05/19/24 19:02 Troponin T Baseline 8 ng/L (0-15) 05/19/24 19:02 Troponin T 120 Minute 6.00 ng/L (0-15) 05/19/24 21:15 Delta Troponin T -2.00 ABS# (0-10) L 05/19/24 21:15 C-Reactive Protein 23.2 mg/L (0.0-4.9) H 05/19/24 19:02 NT-Pro-B Natriuret Pep 973 pg/mL (0-450) H 05/19/24 19:02 Total Protein 5.9 g/dL (6.6-8.7) L 05/19/24 19:02 Albumin 3.7 g/dL (3.5-5.2) 05/19/24 19:02 Globulin 2.2 g/dL (1.3-4.6) 05/19/24 19:02 Urine Color Dark yellow (Yellow) A 05/19/24 19:51 Urine Appearance Clear (CLEAR) 05/19/24 19:51 Urine pH 6.5 (5-7) 05/19/24 19:51 Ur Specific [place] 1.008 (1.005-1.030) 05/19/24 19:51 Urine Protein Negative (Negative) 05/19/24 19:51 Urine Glucose (UA) Negative (Normal) 05/19/24 19:51 Urine Ketones Trace (Negative) 05/19/24 19:51 Urine Blood Negative (Negative) 05/19/24 19:51 Urine Nitrate Negative (Negative) 05/19/24 19:51 Urine Bilirubin Negative (Negative) 05/19/24 19:51 Urine Urobilinogen 1.0 mg/dL (Negative) 05/19/24 19:51 Ur Leukocyte Esterase Negative (Negative) 05/19/24 19:51 Urine RBC 0-2 /hpf (0-2) 05/19/24 19:51 Urine WBC 0-5 /hpf (0-5) 05/19/24 19:51 Ur Squamous Epith Cells 0-5 /hpf (0-5) 05/19/24 19:51 Amorphous Sediment Not Reportable 05/19/24 19:51 Urine Bacteria None seen /hpf (NONE) 05/19/24 19:51 Hyaline Casts 0.40 /lpf 05/19/24 19:51 Discharge Plan Discharge Patient Disposition: Home Clinical Impression: Atrial fibrillation Qualifiers: Atrial fibrillation type: permanent Qualified Code(s): I48.21 - Permanent atrial fibrillation Condition: Stable Prescriptions: New metoprolol tartrate 25 mg tablet 12.5 mg PO BID Qty: 30 0RF No Action calcium polycarbophil 625 mg tablet 1,250 mg PO DAILY PRN (Reason: unknown) docusate sodium 50 mg capsule 50 mg PO TID PRN (Reason: Constipation) polyethylene glycol 3350 [Miralax] 17 gram/dose powder 17 g PO DAILY PRN (Reason: Constipation) azelastine 137 mcg (0.1 %) aerosol,spray 1 spray INTRANASAL BID PRN (Reason: unknown) cetirizine 10 mg tablet 10 mg PO QPM Combivent Respimat 20-100 mcg/actuation mist 1 puff INHALATION QID cholecalciferol (vitamin D3) 25 mcg (1,000 unit) capsule 1,000 unit PO QAM folic acid 400 mcg tablet 400 mcg PO QAM multivitamin Tablet 1 tab PO QAM omeprazole 20 mg capsule,delayed release(DR/EC) 20 mg PO QAM pravastatin 40 mg tablet 40 mg PO QPM Refresh Liquigel 1 % drops, liquid gel 2 drop ophthalmic (eye) QID Xarelto 20 mg tablet 20 mg PO QPM Hold Instructions: Resume on 11/01/21. (DME) Accomodative inserts See Rx Instructions .Route .MEDSUPPLY Qty: 1 0RF Rx Instructions: As directed Aimovig Autoinjector 140 mg/mL auto-injector 140 mg SUBCUT Q30D Qty: 1 6RF Rx Instructions: Subcutaneous each month galantamine 12 mg tablet 12 mg PO BID Qty: 180 3RF memantine 10 mg tablet 10 mg PO BID Qty: 180 2RF (DME) diabetic shoes See Rx Instructions .Route .MEDSUPPLY Qty: 1 0RF Rx Instructions: As directed metoprolol tartrate 25 mg tablet 25 mg PO BID PRN glucosamine-chondroitin [Osteo Bi-Flex] 250-200 mg Tablet 1 tab PO QAM magnesium oxide 400 mg magnesium Tablet 400 mg PO QAM Discharge Orders: Discharge ED (Routine); Ordered 05/19/24 Ordered By: Kirk Barcenas Referrals: Pavel Randall DO [Primary Care Provider] - Patient Instructions: A-fib (Atrial Fibrillation) (ED), Altered Mental Status (ED), Opioid Safety, Pain Management Activity Restrictions/Additional Instructions: Medication as directed. Measure heart rate. If heart rate remains below 65, you may discontinue the metoprolol. Return for any problems. Watch for fever, worsening mental status, etc. See your doctor next week. Coding Level of Care Code ED Geospatial Analyst for Wesly Longoria
[2024-05-19 19:03] VITALS: BP 128/87; PULSE 131; RESP 12; O2SAT 98
--- NOTE | 2024-05-19 19:04 | ECG_ITS ---
[facility] Test Date: 2024-05-19 Pat Name: Reid Farooq Department: Room: Gender: Male Model Builder: : 1940 Requested By: Anthony Donald Order Number: [id number] Reading MD: SHAHLA MARTINES Measurements Intervals [place] Rate: 108 P: 0 AR: 0 QRS: 72 QRSD: 149 T: -24 QT: 364 QTc: 489 Interpretive Statements ATRIAL FIBRILLATION WITH RAPID VENTRICULAR RESPONSE RIGHT BUNDLE BRANCH BLOCK [120+ ms QRS DURATION, UPRIGHT V1, 40+ ms S IN I/aVL/V4/V5/V6] Compared to ECG 11/02/2023 11:12:52 No significant changes Electronically Signed On 05-19-2024 20:18:08 CDT by SHAHLA MARTINES [email or web address]
[2024-05-19 19:06] LABS: Basophils % 0.1 %; Eosinophils % 0.4 %; Hematocrit 42.9 % (37-53); Lymphocytes # 2.6 10^3/uL (0.8-4.8); Lymphocytes % 31.6 %; Mean Corpuscular Hemoglobin 32.2 pg (27-33); Mean Corpuscular Volume 92.1 fl (82-101); Mean Platelet Volume 8.2 fL (7.4-10.4); Monocytes # 0.7 10^3/uL (0.2-0.9); Monocytes % 8.4 %; Neutrophils # 4.91 10^3/uL (1.8-7.7); Neutrophils % 59.1 %; Nucleated Red Blood Cells % 0 %; Platelet Count 199 10^3/cmm (157-399); Red Blood Count 4.66 10^6/uL (3.85-5.65); Red Cell Distribution Width 13.1 % (12.1-15.1)
[2024-05-19] MEDS: sodium chloride 0.9% 1,000 ML 999 ML IV ×2 (19:09→20:44)
[2024-05-19 19:27] LABS: Troponin(5th) Baseline 8 ng/L (0-15)
[2024-05-19 19:28] LABS: Lactic Sepsis W/Reflex 1.3 mmol/L (0.5-2.2)
[2024-05-19 19:36] LABS: Alanine Aminotransferase 13 U/L (0-41); Albumin Level 3.7 g/dL (3.5-5.2); Alkaline Phosphatase 70 U/L (40-130); Anion Gap 14.2 (5-19); Aspartate Amino Transferase 15 U/L (0-40); Blood Urea Nitrogen 11 mg/dL (8-23); C Reactive Protein 23.2 mg/L (0.0-4.9); Calcium 9.2 mg/dL (8.5-10.5); Carbon Dioxide 26 mmol/L (22-29); Chloride 101 mmol/L (98-107); Creatinine Clr Calc Pharmacy 66.0042; Globulin 2.2 g/dL (1.3-4.6); Glucose 130 mg/dL (65-115); Osmolality Calculated 285 mOsm/kg (285-295); Potassium 4.2 mmol/L (3.5-5.1); Sodium 137 mmol/L (136-145); Total Protein 5.9 g/dL (6.6-8.7)
[2024-05-19 19:57] LABS: Charge for UA Resulting for Rev
[2024-05-19 19:59] LABS: Bilirubin Urine Negative (Negative); Blood Urine Negative (Negative); Glucose Urine UA Negative (Normal); Ketones Urine Trace (Negative); Leukocyte Esterase Urine Negative (Negative); Nitrate Urine Negative (Negative); Protein Urine Negative (Negative); Specific Gravity, Urine 1.008 (1.005-1.030); Urine Appearance Clear (CLEAR); pH Urine 6.5 (5-7)
[2024-05-19 20:01] LABS: Bacteria Urine None Seen /hpf; RBC Urine 0-2 /hpf (0-2); Squamous Epithelial Cell Urine 0-5 /hpf (0-5); Urine Color Dark Yellow (Yellow); WBC Urine 0-5 /hpf (0-5)
--- NOTE | 2024-05-19 20:41 | ECG_ITS ---
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 Measurements Intervals [place] Rate: 112 P: 0 FL: 0 QRS: 78 QRSD: 145 T: -33 QT: 360 QTc: 494 Interpretive Statements ATRIAL FIBRILLATION WITH RAPID VENTRICULAR RESPONSE RIGHT BUNDLE BRANCH BLOCK [120+ ms QRS DURATION, UPRIGHT V1, 40+ ms S IN I/aVL/V4/V5/V6] Compared to ECG 05/19/2024 19:04:14 No significant changes Electronically Signed On 05-20-2024 20:11:12 CDT by Rodrigue Zhou M.D. [id number]
[2024-05-19 20:44] VITALS: BP 125/82; PULSE 112; RESP 15; O2SAT 97
[2024-05-19 21:51] VITALS: BP 115/85; PULSE 127; RESP 17; O2SAT 96
[2024-05-19] MEDS: metoprolol tartrate 1 mg/1 mL SDV 5 mL 5 MG IVP (21:51)
[2024-05-19 22:11] LABS: NT Pro B Type Natriuretic Pept 973 pg/mL (0-450)
[2024-05-19] MEDS: metoprolol tartrate 25 mg Tablet 12.5 MG PO (22:59)
[2024-05-19 23:14] VITALS: BP 117/93; PULSE 116; RESP 19; O2SAT 96
== END 2024-05-19 23:05 | disposition home or self-care (01) ==
PROVIDERS: Emergency Medicine; Emergency Provider Emergency Medicine; PCP Emergency Medicine Emergency Medical Services
DX: I48.21 Permanent atrial fibrillation (principal); Z87.891 Personal history of nicotine dependence; J44.9 Chronic obstructive pulmonary disease, unspecified; E78.5 Hyperlipidemia, unspecified; I10 Essential (primary) hypertension
CPT/HCPCS: 36415; 70450; 71045; 80053; 81003; 81015; 83605; 83880; 84484; 85025; 86140; 93005; 96361; 96374; 99285; J3490; J7030

== ENCOUNTER 2024-05-26 11:42 | Inpatient (IN) | payer OTHER, MEDICARE, SELFPAY ==
[2024-05-26] VITALS (50 sets, daily range): BP systolic 89–140; BP diastolic 59–95; PULSE 65–141; RESP 8–31; TEMP 36.6–37.2; O2SAT 85–97; BMI 25.9
--- NOTE | 2024-05-26 11:43 | ED_ITS ---
HPI - Arrhythmia/Palpitations 2 General: Chief Complaint: Weakness Stated Complaint: weakness Time Seen by Provider: 05/26/24 11:42 History of Present Illness: 84-year-old male presents to the emergen cy room with a complaint of weakness. He was here last week and found to have A-fib be started on metoprolol at home states heart rate has been elevated quite a bit. At some rates up to 130 and even higher. He has not been able to get out of bed in the last week. EMS was called because of generalized weakness. He is right underlying right bundle branch block and had some changes however his EKG when he first arrived here as well as the field EKG did not show any acute changes from his previous EKGs. Patient had some dementia and he answered pretty much all the questions negative not sure how accurate that is. According to the he has not complained of any chest pain to them they have not noticed anything that looks as if he may be having shortness of breath. Related Data Home Medications Medication Instructions Recorded Confirmed azelastine 137 mcg (0.1 %) nasal 1 spray intranasal BID PRN unknown 12/25/19 05/04/24 spray carboxymethylcellulose sodium 1 % 2 drop ophthalmic (eye) QID 12/25/19 05/04/24 eye liquid gel drops (Refresh Liquigel) cetirizine 10 mg tablet 10 mg PO QPM 12/25/19 05/04/24 cholecalciferol (vitamin D3) 25 1,000 unit PO QAM 12/25/19 05/04/24 mcg (1,000 unit) capsule folic acid 400 mcg tablet 400 mcg PO QAM 12/25/19 05/04/24 ipratropium 20 mcg-albuterol 100 1 puff inhalation QID 12/25/19 05/04/24 mcg/actuation mist for inhalation (Combivent Respimat) multivitamin 1 tab PO QAM 12/25/19 05/04/24 omeprazole 20 mg capsule,delayed 20 mg PO QAM 12/25/19 05/04/24 release pravastatin 40 mg tablet 40 mg PO QPM 12/25/19 05/04/24 rivaroxaban 20 mg tablet (Xarelto) 20 mg PO QPM 12/25/19 05/04/24 calcium polycarbophil 625 mg tablet 1,250 mg PO DAILY PRN unknown 09/08/21 05/04/24 docusate sodium 50 mg capsule 50 mg PO TID PRN Constipation 09/08/21 05/04/24 polyethylene glycol 3350 17 17 g PO DAILY PRN Constipation 09/08/21 05/04/24 gram/dose oral powder (Miralax) glucosamine-chondroitin 250 mg-200 1 tab PO QAM 05/08/23 05/04/24 mg tablet (Osteo Bi-Flex) magnesium oxide 400 mg PO QAM 05/08/23 05/04/24 metoprolol tartrate 25 mg tablet 25 mg PO BID PRN 12/02/23 05/04/24 Previous Rx's Medication Instructions Recorded Accomodative inserts #1 ea 07/03/20 diabetic shoes #1 ea 09/16/20 erenumab-aooe 140 mg/mL 140 mg SUBCUT Q30D #1 mL 02/02/24 subcutaneous auto-injector (Aimovig Autoinjector) galantamine 12 mg tablet 12 mg PO BID #180 tabs 02/02/24 memantine 10 mg tablet 10 mg PO BID #180 tabs 02/02/24 metoprolol tartrate 25 mg tablet 12.5 mg (1/2 x 25 mg) PO BID #30 05/19/24 tabs Allergies Allergy/AdvReac Type Severity Reaction Status Date / Time codeine Allergy Vomit Verified 05/19/24 18:23 Review of Systems 2 Const: Denies: fever(s) or chills Card: Denies: chest pain Resp: Denies: dyspnea GI: Denies: abdominal pain : Denies: dysuria, urinary frequency or urinary urgency Musc: Denies: neck pain or back pain Skin/Breast: Denies: rash PFSH ED 2 PFSH: Medical History Colon polyps History of nonmelanoma skin cancer DJD (degenerative joint disease) Headache Numbness and tingling BPH (benign prostatic hyperplasia) Atrial fibrillation COPD (chronic obstructive pulmonary disease) Mild cognitive impairment Hyperlipidemia Hypertension History of fracture of lower extremity Surgical History Status post colonoscopy (10/30/21) History of open reduction and internal fixation (ORIF) procedure lle History of rhinoplasty Family History Other Chronic headaches Diabetes Memory loss Social History Smoking and tobacco/nicotine status: former use of tobacco/nicotine Alcohol intake: never Substance/Drug Use: never Household members: spouse Marital status: Physical Exam 2 Const: COMMON NORMALS: no acute distress GENERAL APPEARANCE: cooperative and comfortable ORIENTATION/CONSCIOUSNESS: Yes awake HENMT: COMMON NORMALS: normocephalic, atraumatic and hearing grossly normal bilaterally HEAD & SCALP: normocephalic and atraumatic Resp: COMMON NORMALS: normal respiratory effort, No retractions, No use of accessory muscles and clear to auscultation bilaterally AUSCULTATION: clear to auscultation bilaterally Cardio: COMMON NORMALS: No murmurs present (Cardio) RATE: tachycardic R HYTHM: abnormal rhythm irregularly irregular GI: COMMON NORMALS: Soft to palpation and No hepatosplenomegaly present A USCULTATION: Yes normoactive bowel sounds PALPATION: Yes Soft to palpation, No Tenderness to palpation present (GI), No Guarding due to palpation present (GI) and Yes No hepatosplenomegaly present Extremity: COMMON NORMALS: normal to inspection, capillary refill normal, no clubbing, cyanosis or edema, no calf tenderness and no pedal edema Skin: COMMON NORMALS: no rashes or lesions noted GENERAL SKIN EXAM: no rashes or lesions noted Course 2 Vital Signs: Vital signs: Vital Signs Temperature 98.2 F 05/26/24 11:45 Pulse Rate 122 H 05/26/24 14:35 Respiratory Rate 20 H 05/26/24 14:35 Blood Pressure 118/75 05/26/24 14:35 Pulse Oximetry 93 05/26/24 14:35 Oxygen Delivery Me thod Room Air 05/26/24 11:45 MDM - Arrhythmia/Palpitations Medical Decision Making Atrial fibrillation with borderline rapid ventricular response reviewed given extra dose of metoprolol which seems to help and held his rate around 100 blood pressure remained stable he had 1 blood pressure was low really feels artifactual no poorly fitted Remained Overall within Same Range. We Did Do Serial Cardiac Enzymes Which Shows a Slight Bump in His Troponin. He Has Not Previously Had Any Cardiac Workup for Coronary Artery Disease Discussed with Hospitalist Will Admit Family Is Still Willing and Wanting to Pursue workup. Discussed findings with send discussed with hospitalist orders written. Medical Records I reviewed the patient's medical records. Lab Data I reviewed the patient's lab results. 05/26/24 11:53 05/26/24 11:53 Radiology Impressions Chest X-Ray 05/26/24 11:44 IMPRESSION: Persistent bibasilar reticular opacities. This likely represents atelectasis and/or chronic peripheral reticular disease/scarring. No distinct focal consolidation to suggest overlying pneumonia. Laboratory Results WBC 10.85 10^3/uL (3.29-11.43) 05/26/24 11:53 RBC 5.12 10^6/uL (3.85-5.65) 05/26/24 11:53 Hgb 16.30 g/dL (11.27-16.99) 05/26/24 11:53 Hct 45.7 % (37-53) 05/26/24 11:53 MCV 89.3 fl (82-101) 05/26/24 11:53 MCH 31.8 pg (27-33) 05/26/24 11:53 MCHC 35.7 g/dL (30-55) 05/26/24 11:53 RDW 12.4 % (12.1-15.1) 05/26/24 11:53 Plt Count 258 10^3/cmm (157-399) 05/26/24 11:53 MPV 8.2 fL (7.4-10.4) 05/26/24 11:53 Neut % (Auto) 44.7 % 05/26/24 11:53 Lymph % (Auto) 46.7 % 05/26/24 11:53 [place] % (Auto) 7.5 % 05/26/24 11:53 Eos % (Auto) 0.6 % 05/26/24 11:53 Baso % (Auto) 0.3 % 05/26/24 11:53 Neut # (Auto) 4.85 10^3/uL (1.8-7.7) 05/26/24 11:53 Lymph # (Auto) 5.1 10^3/uL (0.8-4.8) H 05/26/24 11:53 [place] # (Auto) 0.8 10^3/uL (0.2-0.9) 05/26/24 11:53 Eos # (Auto) 0.1 10^3/uL (0.0-0.8) 05/26/24 11:53 Baso # (Auto) 0.0 10^3/uL (0.0-0.1) 05/26/24 11:53 Nucleated RBC % (auto) 0 % 05/26/24 11:53 Nucleated RBCs # 0.0 /100WBC 05/26/24 11:53 Sodium 130 mmol/L (136-145) L 05/26/24 11:53 Potassium 3.7 mmol/L (3.5-5.1) 05/26/24 11:53 Chloride 96 mmol/L (98-107) L 05/26/24 11:53 Carbon Dioxide 23 mmol/L (22-29) 05/26/24 11:53 Anion Gap 14.7 (5-19) 05/26/24 11:53 BUN 14 mg/dL (8-23) 05/26/24 11:53 Creatinine 0.7 mg/dL (0.7-1.2) 05/26/24 11:53 GFR Calculation Not Reportable 05/26/24 11:53 Glucose 122 mg/dL (65-115) H 05/26/24 11:53 Calculated Osmolality 272 mOsm/kg (285-295) L 05/26/24 11:53 Calcium 9.0 mg/dL (8.5-10.5) 05/26/24 11:53 Total Bilirubin 1.0 mg/dL (0.15-1.2) 05/26/24 11:53 AST 18 U/L (0-40) 05/26/24 11:53 ALT 17 U/L (0-41) 05/26/24 11:53 Alkaline Phosphatase 92 U/L (40-130) 05/26/24 11:53 Troponin T Baseline 10 ng/L (0-15) 05/26/24 11:53 Troponin T 120 Minute 17.45 ng/L (0-15) H 05/26/24 14:04 Delta Troponin T 7.45 ABS# (0-10) 05/26/24 14:04 Total Protein 6.5 g/dL (6.6-8.7) L 05/26/24 11:53 Albumin 3.6 g/dL (3.5-5.2) 05/26/24 11:53 Globulin 2.9 g/dL (1.3-4.6) 05/26/24 11:53 All radiology interpretation(s) finalized by discharge Discharge Plan Discharge Patient Disposition: Admitted As Inpatient Clinical Impression: Elevated troponin I level, Lewy body dementia, Atrial fibrillation, Anticoagulation adequate with anticoagulant therapy Condition: Stable Prescriptions: No Action calcium polycarbophil 625 mg tablet 1,250 mg PO DAILY PRN (Reason: unknown) docusate sodium 50 mg capsule 50 mg PO TID PRN (Reason: Constipation) polyethylene glycol 3350 [Miralax] 17 gram/dose powder 17 g PO DAILY PRN (Reason: Constipation) azelastine 137 mcg (0.1 %) aerosol,spray 1 spray INTRANASAL BID PRN (Reason: unknown) cetirizine 10 mg tablet 10 mg PO QPM Combivent Respimat 20-100 mcg/actuation mist 1 puff INHALATION QID cholecalciferol (vitamin D3) 25 mcg (1,000 unit) capsule 1,000 unit PO QAM folic acid 400 mcg tablet 400 mcg PO QAM multivitamin Tablet 1 tab PO QAM omeprazole 20 mg capsule,delayed release(DR/EC) 20 mg PO QAM pravastatin 40 mg tablet 40 mg PO QPM Refresh Liquigel 1 % drops, liquid gel 2 drop ophthalmic (eye) QID Xarelto 20 mg tablet 20 mg PO QPM Hold Instructions: Resume on 11/01/21. (DME) Accomodative inserts See Rx Instructions .Route .MEDSUPPLY Qty: 1 0RF Rx Instructions: As directed Aimovig Autoinjector 140 mg/mL auto-injector 140 mg SUBCUT Q30D Qty: 1 6RF Rx Instructions: Subcutaneous each month galantamine 12 mg tablet 12 mg PO BID Qty: 180 3RF memantine 10 mg tablet 10 mg PO BID Qty: 180 2RF (DME) diabetic shoes See Rx Instructions .Route .MEDSUPPLY Qty: 1 0RF Rx Instructions: As directed metoprolol tartrate 25 mg tablet 25 mg PO BID PRN glucosamine-chondroitin [Osteo Bi-Flex] 250-200 mg Tablet 1 tab PO QAM magnesium oxide 400 mg magnesium Tablet 400 mg PO QAM metoprolol tartrate 25 mg tablet 12.5 mg PO BID Qty: 30 0RF Referrals: Pavel Randall DO [Primary Care Provider] - Coding Level of Care Code ED Hvac Service Technician for Wesly Longoria
--- NOTE | 2024-05-26 11:44 | XRR_ITS ---
PROCEDURE INFORMATION: Exam: XR Chest Exam date and time: 05/26/2024 11:56 AM Age: 84 years old Clinical indication: Other: Afib w rvr TECHNIQUE: Imaging protocol: Radiologic exam of the chest. Views: 1 view. COMPARISON: CR (CHEST, ) 05/19/2024 6:38 PM FINDINGS: Lungs: Persistent bibasilar reticular opacities. No distinct focal consolidation to suggest overlying pneumonia. Pleural spaces: No large pleural effusion. No distinct pneumothorax. Heart/Mediastinum: Cardiomediastinal silhouette is midline and stable in size. Vasculature: Calcific disease of the aorta. Bones/joints: Degenerative changes of the bilateral shoulders. No distinct acute osseous findings. XR/XR chest 1V portable [id number] IMPRESSION: Persistent bibasilar reticular opacities. This likely represents atelectasis and/or chronic peripheral reticular disease/scarring. No distinct focal consolidation to suggest overlying pneumonia.
--- NOTE | 2024-05-26 11:45 | ECG_ITS ---
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 Measurements Intervals [place] Rate: 103 P: 0 MT: 0 QRS: 62 QRSD: 147 T: -66 QT: 377 QTc: 495 Interpretive Statements ATRIAL FIBRILLATION WITH RAPID VENTRICULAR RESPONSE INTRAVENTRICULAR CONDUCTION DELAY [130+ ms QRS DURATION] INTERPRETATION BASED ON A DEFAULT AGE OF 40 YEARS Compared to ECG 05/19/2024 20:41:54 Intraventricular conduction delay now present Right bundle-branch block no longer present Electronically Signed On 05-26-2024 18:48:05 CDT by Mayo Garcia M.D. [id number]
[2024-05-26 11:59] LABS: Basophils % 0.3 %; Eosinophils # 0.1 10^3/uL (0.0-0.8); Eosinophils % 0.6 %; Hematocrit 45.7 % (37-53); Lymphocytes # 5.1 10^3/uL (0.8-4.8); Lymphocytes % 46.7 %; Mean Corpuscular HGB Conc 35.7 g/dL (30-55); Mean Corpuscular Hemoglobin 31.8 pg (27-33); Mean Corpuscular Volume 89.3 fl (82-101); Mean Platelet Volume 8.2 fL (7.4-10.4); Monocytes # 0.8 10^3/uL (0.2-0.9); Monocytes % 7.5 %; Neutrophils # 4.85 10^3/uL (1.8-7.7); Neutrophils % 44.7 %; Nucleated Red Blood Cells % 0 %; Platelet Count 258 10^3/cmm (157-399); Red Blood Count 5.12 10^6/uL (3.85-5.65); Red Cell Distribution Width 12.4 % (12.1-15.1); White Blood Count 10.85 10^3/uL (3.29-11.43)
[2024-05-26 12:33] LABS: Alanine Aminotransferase 17 U/L (0-41); Albumin Level 3.6 g/dL (3.5-5.2); Alkaline Phosphatase 92 U/L (40-130); Anion Gap 14.7 (5-19); Aspartate Amino Transferase 18 U/L (0-40); Blood Urea Nitrogen 14 mg/dL (8-23); Carbon Dioxide 23 mmol/L (22-29); Chloride 96 mmol/L (98-107); Globulin 2.9 g/dL (1.3-4.6); Glucose 122 mg/dL (65-115); Osmolality Calculated 272 mOsm/kg (285-295); Potassium 3.7 mmol/L (3.5-5.1); Sodium 130 mmol/L (136-145); Total Protein 6.5 g/dL (6.6-8.7)
[2024-05-26 12:34] LABS: Troponin(5th) Baseline 10 ng/L (0-15)
--- NOTE | 2024-05-26 13:44 | ECG_ITS ---
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 Measurements Intervals [place] Rate: 108 P: 0 [place]: 0 QRS: 60 QRSD: 146 T: -27 QT: 388 QTc: 522 Interpretive Statements ATRIAL FIBRILLATION WITH RAPID VENTRICULAR RESPONSE RIGHT BUNDLE BRANCH BLOCK [120+ ms QRS DURATION, UPRIGHT V1, 40+ ms S IN I/aVL/V4/V5/V6] Compared to ECG 05/19/2024 20:41:54 No significant changes Electronically Signed On 05-26-2024 18:52:59 CDT by Mayo Garcia M.D. [id number]
[2024-05-26] MEDS: metoprolol tartrate 25 mg Tablet 12.5 MG PO ×2 (13:59→18:08)
[2024-05-26 14:33] LABS: Troponin 5 2HR 17.45 ng/L (0-15); Troponin 5 2HR Delta 7.45 ABS# (0-10)
--- NOTE | 2024-05-26 16:02 | P.HP_ITS ---
Providers/Chief Complaint 2 Primary Care Provider: Pavel Randall DO Chief Complaint: weakness History of Present Illness Reid Farooq is a 84 year old male with past medical history of atrial fibrillation on Xarelto, hypertension with episode of hypotension on metoprolol, COPD, dementia, hyperlipidemia who presents to the ER today from home with his family for generalized weakness which has been getting worse over last 1 week to 10 days with multiple episodes of fall. Patient was in the ER a week ago for the same reason at which he was diagnosed of atrial fibrillation with rapid ventricular response and was discharged on 12.5 twice daily of metoprolol. Because his symptoms are getting worse so they presented back to the ER today. In the ER he was again found to be in rapid ventricular response for which she was given extra 12.5 mg of oral metoprolol. On examination patient's heart rate is running between 95?110 at rest on room air with blood pressure of 110/60 mmHg He denies any nausea, vomiting, headache, dysuria, sick contacts, difficulty breathing, chest pain but does complain of constipation with last bowel movement around 2 days ago. Family also complains of decreased oral intake within last 1 week. Review of Systems 2 General: Reports: 10 or more systems reviewed and unremarkable except in HPI and below Const: Denies: fever(s), chills, body aches, change in appetite, change in weight, malaise, night sweats, diaphoresis, change in sleep pattern, daytime sleepiness or snoring Eyes: Denies: change in vision, blurry vision, photophobia, eye discomfort or eye discharge ENMT: Denies: throat pain, enlarged tonsils, hoarseness, mouth pain, oral sores, dry mouth, tinnitus, nasal congestion or post nasal drip Card: Denies: chest pain, palpitations, irregular heart rhythm, edema, swelling of feet/ankles, lightheadedness, syncope, pre-syncope, dyspnea on exertion, orthopnea, leg pain with exertion or acrocyanosis Resp: Denies: dyspnea, productive cough, non-productive cough, wheezing, stridor, pain on inspiration, change in phlegm color, hemoptysis or chest congestion GI: Denies: abdominal pain, nausea, vomiting, hematemesis, coffee ground emesis, dysphagia, heartburn, diarrhea, constipation, bloating, GI cramping, change in bowel habits, pain on defecation, hematochezia or melena : Denies: flank pain, difficulty urinating, dysuria, urinary frequency, urinary urgency, urinary hesitancy, urinary dribbling, difficulty starting urination, change in urine stream, nocturia or hematuria Musc: Denies: neck pain, back pain, extremity pain, joint pain, joint swelling, joint redness, joint stiffness or limited range of motion Neuro: Denies: headache(s), numbness in extremities, weakness in extremities, sensory changes, lack of coordination, difficulty walking, frequent falls, dizziness, vertigo, confusion, Slurred speech present, difficulty communicating thoughts or seizure-like activity Psych: Denies: anxiety, depression, mood swings, panic attacks, hopelessness or irritability Endo: Denies: polyuria, polydipsia, tired all the time, cold intolerance, excessive sweating, flushing or heat intolerance John/Lymph: Denies: easy bruising or easy bleeding All/Imm: Denies: tongue swelling, facial swelling or acute wheezing Medications/Allergies Home Medications Medication Instructions Recorded Confirmed Last Taken Type azelastine 137 mcg (0.1 %) nasal 1 spray intranasal BID PRN unknown 12/25/19 05/04/24 Unknown History spray carboxymethylcellulose sodium 1 % 2 drop ophthalmic (eye) QID 12/25/19 05/04/24 11/02/23 History eye liquid gel drops (Refresh Liquigel) cetirizine 10 mg tablet 10 mg PO QPM 12/25/19 05/04/24 11/01/23 History cholecalciferol (vitamin D3) 25 1,000 unit PO QAM 12/25/19 05/04/24 11/02/23 History mcg (1,000 unit) capsule folic acid 400 mcg tablet 400 mcg PO QAM 12/25/19 05/04/24 11/02/23 History ipratropium 20 mcg-albuterol 100 1 puff inhalation QID 12/25/19 05/04/24 11/02/23 History mcg/actuation mist for inhalation (Combivent Respimat) multivitamin 1 tab PO QAM 12/25/19 05/04/24 11/02/23 History omeprazole 20 mg capsule,delayed 20 mg PO QAM 12/25/19 05/04/24 11/02/23 History release pravastatin 40 mg tablet 40 mg PO QPM 12/25/19 05/04/24 11/01/23 History rivaroxaban 20 mg tablet (Xarelto) 20 mg PO QPM 12/25/19 05/04/24 11/01/23 History Accomodative inserts #1 ea 07/03/20 05/04/24 Unknown Rx diabetic shoes #1 ea 09/16/20 05/04/24 Unknown Rx calcium polycarbophil 625 mg tablet 1,250 mg PO DAILY PRN unknown 09/08/21 05/04/24 10/29/21 History docusate sodium 50 mg capsule 50 mg PO TID PRN Constipation 09/08/21 05/04/24 05/07/23 History polyethylene glycol 3350 17 17 g PO DAILY PRN Constipation 09/08/21 05/04/24 10/29/21 History gram/dose oral powder (Miralax) glucosamine-chondroitin 250 mg-200 1 tab PO QAM 05/08/23 05/04/24 11/02/23 History mg tablet (Osteo Bi-Flex) magnesium oxide 400 mg PO QAM 05/08/23 05/04/24 11/02/23 History metoprolol tartrate 25 mg tablet 25 mg PO BID PRN 12/02/23 05/04/24 Unknown History erenumab-aooe 140 mg/mL 140 mg SUBCUT Q30D #1 mL 02/02/24 05/04/24 Unknown Rx subcutaneous auto-injector (Aimovig Autoinjector) galantamine 12 mg tablet 12 mg PO BID #180 tabs 02/02/24 05/04/24 Unknown Rx memantine 10 mg tablet 10 mg PO BID #180 tabs 02/02/24 05/04/24 Unknown Rx metoprolol tartrate 25 mg tablet 12.5 mg (1/2 x 25 mg) PO BID #30 05/19/24 Unknown Rx tabs Allergies Allergy/AdvReac Type Severity Reaction Status Date / Time codeine Allergy Vomit Verified 05/19/24 18:23 PFSH Acute 2 PFSH: Medical History Colon polyps History of nonmelanoma skin cancer DJD (degenerative joint disease) Headache Numbness and tingling BPH (benign prostatic hyperplasia) Atrial fibrillation COPD (chronic obstructive pulmonary disease) Mild cognitive impairment Hyperlipidemia Hypertension History of fracture of lower extremity Surgical History Status post colonoscopy (10/30/21) History of open reduction and internal fixation (ORIF) procedure lle History of rhinoplasty Family History Other Chronic headaches Diabetes Memory loss Social History Smoking and tobacco/nicotine status: former use of tobacco/nicotine Alcohol intake: never Substance/Drug Use: never Household members: spouse Marital status: Vitals/I&O/Wt Last Vital Signs Temp 98.2 F 05/26/24 11:45 Pulse 122 H 05/26/24 14:35 Resp 20 H 05/26/24 14:35 BP 118/75 05/26/24 14:35 Pulse Ox 93 05/26/24 14:35 O2 Del Method Room Air 05/26/24 11:45 Physical Exam 2 Narrative: General: No acute distress, AO x 2-3, mildly confused HEENT: PERRLA, pupils bilaterally equal and reactive Chest: Bilateral bronchial breath sounds all over lung longo occasional rhonchi CVS: S1-S2 irregularly irregular, tachycardia, no gallops, no rubs Abdomen: Soft, nontender, no organomegaly, bowel sounds present Neuro: No focal deficits, no facial deformity, AO x3, power 5/5 in all limbs Data 05/26/24 11:53 05/26/24 11:53 A&P Assessment and plan (1) Atrial fibrillation with RVR: Chronic atrial fibrillation. Also gives history of cardioversion in the past. History of getting hypotensive on metoprolol. In past was on 50 every morning and 25 nightly of metoprolol which was gradually weaned off given episodes of hypotension. Currently on 12.5 mg of metoprolol twice daily. Given episodes of hypotension, dizziness, weakness for now we will try with amiodarone. Amiodarone gtt. without bolus. Continue with metoprolol 12.5 mg twice daily. Monitor blood pressures and heart rate. Check echocardiogram. Normal saline 50 cc/h. Continue with home dose of Xarelto. (2) Hypertension: Goal blood pressure less than 140/90 MAG with mean over 65. Treatment as above. Qualifiers: Hypertension type: primary hypertension Qualified Code(s): I10 - Essential (primary) hypertension (3) COPD (chronic obstructive pulmonary disease): Not in exacerbation. Continue with ipratropium, Xopenex every 6 hours, Pulmicort twice daily. (4) Weakness: Unknown cause. Check TSH, vitamin B12, folate level, urinalysis to rule out UTI, procalcitonin. Check echocardiogram as above. Infectious cause less likely for now as patient does not have leukocytosis, history of fever or dysuria. Rule out with urinalysis as above. Check respiratory viral panel. Hold off on starting any antibiotics for now. Could be in setting of mild hyponatremia. Sodium level down to 130. IV fluid as above. Continue to monitor BMP daily. Physical therapy evaluation. (5) Anticoagulation adequate with anticoagulant therapy: (6) Lewy body dementia: Continue with home dose of Namenda. Frequent reorientation. Plan CODE STATUS: Discussed in detail with patient and spouse at bedside. Spouse will be the DPOA. DNR/DNI. Cardiac diet Protonix for PUD prophylaxis Xarelto will be sufficient for DVT prophylaxis Attestations 2 Medical Necessity Statement*: Admission for more than 2 midnights for management of atrial fibrillation with rapid ventricular response, generalized weakness passive discharge planning is sought Diagnoses Atrial fibrillation with RVR I48.91 Primary hypertension I10 Hypertension type: primary hypertension COPD (chronic obstructive pulmonary disease) J44.9 Weakness R53.1 Anticoagulation adequate with anticoagulant therapy Z79.01 Lewy body dementia G31.83; F02.80
[2024-05-26 16:39] LABS: Procalcitonin 0.04 ng/mL (0-0.5); Thyroid Stimulating Hormone 1.68 uIU/mL (0.27-4.20); Vitamin B12 502 pg/mL (232-1245)
[2024-05-26 16:49] LABS: Iron 77 ug/dL (59-158)
[2024-05-26 16:59] LABS: Percent Saturation 30.4 % (20-50); Total Iron Binding Capacity 253 mcg/dl; Unsaturated Iron Binding 176 ug/dL (112-347)
--- NOTE | 2024-05-26 17:44 | ECG_ITS ---
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 Measurements Intervals [place] Rate: 100 P: 0 [place]: 0 QRS: 68 QRSD: 157 T: -35 QT: 384 QTc: 496 Interpretive Statements ATRIAL FIBRILLATION WITH RAPID VENTRICULAR RESPONSE RIGHT BUNDLE BRANCH BLOCK [120+ ms QRS DURATION, UPRIGHT V1, 40+ ms S IN I/aVL/V4/V5/V6] MODERATE T-WAVE ABNORMALITY, CONSIDER LATERAL ISCHEMIA [-0.1+ mV T-WAVE IN I/aVL/V5/V6] Compared to ECG 05/26/2024 13:18:43 T-wave abnormality now present Possible ischemia now present Electronically Signed On 05-26-2024 18:54:25 CDT by Mayo Garcia M.D. [email or web address].[email or web address] [email or web address] [employer]t/store/[id number]
[2024-05-26] MEDS: atorvastatin 40 mg Tablet 20 MG PO (18:07)
[2024-05-26] MEDS: rivaroxaban 10 mg Tablet 20 MG PO (18:08)
[2024-05-26] MEDS: memantine 5 mg tablet 10 MG PO (18:08)
[2024-05-26 18:18] LABS: Adenovirus Not Detected (NOT DETECT); Chlamydia Pneumoniae Not Detected (NOT DETECT); Coronavirus 229E,HKU1,NL63,OC4 Not Detected (NOT DETECT); Human Metapneumovirus Not Detected (NOT DETECT); Human Rhinovirus/Enterovirus Not Detected (NOT DETECT); Influenza A Not Detected (NOT DETECT); Influenza A H1 Not Detected (NOT DETECT); Influenza A H1-2009 Not Detected (NOT DETECT); Influenza A H3 Not Detected (NOT DETECT); Influenza B Not Detected (NOT DETECT); Mycoplasma Pneumoniae Not Detected (NOT DETECT); Parainfluenza Virus Type 1 Not Detected (NOT DETECT); Parainfluenza Virus Type 2 Not Detected (NOT DETECT); Parainfluenza Virus Type 3 Not Detected (NOT DETECT); Parainfluenza Virus Type 4 Not Detected (NOT DETECT); Respiratory Syncytial Virus A Not Detected (NOT DETECT); Respiratory Syncytial Virus B Not Detected (NOT DETECT); SARS-COV-2 Not Detected (NOT DETECT)
[2024-05-26] MEDS: sodium chloride 0.9% 1,000 ML 50 ML IV (18:30)
[2024-05-26 18:47] LABS: Charge for UA Resulting for Rev
[2024-05-26 18:50] LABS: Bilirubin Urine Negative (Negative); Blood Urine Negative (Negative); Glucose Urine UA Negative (Normal); Ketones Urine 1+ (Negative); Leukocyte Esterase Urine Negative (Negative); Nitrate Urine Negative (Negative); Protein Urine Negative (Negative); Specific Gravity, Urine 1.022 (1.005-1.030); Urine Appearance Clear (CLEAR); Urine Color Dark Yellow (Yellow); pH Urine 5.5 (5-7)
[2024-05-26 18:55] LABS: Bacteria Urine None Seen /hpf; Hyaline Casts Urine 2.87 /lpf; RBC Urine 0-2 /hpf (0-2); Squamous Epithelial Cell Urine 0-5 /hpf (0-5); WBC Urine 0-5 /hpf (0-5)
[2024-05-26 18:56] LABS: Troponin 5 6HR 8.84 ng/L (0-15)
[2024-05-26 19:01] LABS: Troponin 5 6HR Delta -1.16 ng/L (0-12)
[2024-05-26 20:00] LABS: Mucus Urine 3+ /hpf; UA Slide Review UA Slide Review Perf
[2024-05-27] VITALS (56 sets, daily range): BP systolic 83–148; BP diastolic 61–114; PULSE 85–120; RESP 12–32; TEMP 36.4–37.1; O2SAT 86–98; BMI 25.5
[2024-05-27 04:18] LABS: Basophils % 0.1 %; Eosinophils # 0.1 10^3/uL (0.0-0.8); Eosinophils % 0.5 %; Hematocrit 45.2 % (37-53); Lymphocytes # 4.1 10^3/uL (0.8-4.8); Lymphocytes % 44.6 %; Mean Corpuscular HGB Conc 33.8 g/dL (30-55); Mean Corpuscular Hemoglobin 31.9 pg (27-33); Mean Corpuscular Volume 94.4 fl (82-101); Mean Platelet Volume 8.9 fL (7.4-10.4); Monocytes # 0.8 10^3/uL (0.2-0.9); Monocytes % 8.4 %; Neutrophils # 4.25 10^3/uL (1.8-7.7); Neutrophils % 46.2 %; Nucleated Red Blood Cells % 0 %; Platelet Count 260 10^3/cmm (157-399); Red Blood Count 4.79 10^6/uL (3.85-5.65); Red Cell Distribution Width 12.7 % (12.1-15.1)
[2024-05-27 04:45] LABS: Alanine Aminotransferase 17 U/L (0-41); Albumin Level 3.4 g/dL (3.5-5.2); Alkaline Phosphatase 99 U/L (40-130); Blood Urea Nitrogen 14 mg/dL (8-23); Calcium 8.8 mg/dL (8.5-10.5); Carbon Dioxide 22 mmol/L (22-29); Chloride 99 mmol/L (98-107); Globulin 3.1 g/dL (1.3-4.6); Glucose 103 mg/dL (65-115); Magnesium 2.2 mg/dL (1.7-2.3); Osmolality Calculated 279 mOsm/kg (285-295); Phosphorus 3.1 mg/dL (2.5-4.5); Sodium 134 mmol/L (136-145); Total Bilirubin 0.6 mg/dL (0.15-1.2); Total Protein 6.5 g/dL (6.6-8.7)
[2024-05-27 04:47] LABS: Estmated Average Glucose 128; Hemoglobin A1C 6.1 % (4.0-6.0)
[2024-05-27 04:50] LABS: Anion Gap 17.1 (5-19); Aspartate Amino Transferase 20 U/L (0-40); Potassium 4.1 mmol/L (3.5-5.1)
[2024-05-27 05:03] LABS: Chol HDL Ratio 4.39 mg/dL (1.0-5.00); Cholesterol 202 mg/dL (0-200); HDL Cholesterol 46 mg/dL (60-100); LDL Cholesterol Calculated 139 mg/dL (50-129); LDL HDL Ratio 3.02 RATIO (0.00-3.22); Triglycerides 86 mg/dL (0-150)
[2024-05-27 05:08] LABS: Procalcitonin 0.03 ng/mL (0-0.5)
[2024-05-27 05:31] LABS: Folate Level > 20.0 ng/mL (4.5-32.2)
[2024-05-27] MEDS: pantoprazole DR 40 mg Tablet PO (08:44)
[2024-05-27] MEDS: metoprolol tartrate 25 mg Tablet PO ×2 (08:44→17:47)
[2024-05-27] MEDS: memantine 5 mg tablet 10 MG PO ×2 (08:44→17:47)
[2024-05-27] MEDS: budesonide 0.5 mg/2 mL Neb INHALATION ×2 (10:28→21:02)
--- NOTE | 2024-05-27 12:15 | P.PN_ITS ---
Subjective 2 Subjective: No acute vents overnight. Seen with multiple family numbers at bedside. Patient is currently on 0.5 of amiodarone. Heart rate usually running less than 100 but on minimal exertion sometimes going up to 130. Patient remains on room air. Blood pressure stable. Overnight few readings with systolic in mid 80s. Vitals/I&O/Wt Last Vital Signs Temp 98.7 F 05/27/24 07:30 Pulse 88 05/27/24 10:37 Resp 17 05/27/24 10:28 BP 148/114 05/27/24 08:00 Pulse Ox 95 05/27/24 10:28 O2 Del Method Room Air 05/27/24 10:28 05/26/24 05/27/24 05/27/24 22:59 06:59 14:59 Intake Total 312.203 / 312.203 236.426 / 236.426 Output Total 250 / 250 Balance 312.203 / 312.203 -13.574 / -13.574 Weight last 48 hrs Weight 71.838 kg Weight 69.49 kg Weight 73 kg Physical Exam 2 Narrative: General: No acute distress, AO x 2-3, mildly confused HEENT: PERRLA, pupils bilaterally equal and reactive Chest: Bilateral bronchial breath sounds all over lung longo occasional rhonchi CVS: S1-S2 irregularly irregular, tachycardia, no gallops, no rubs Abdomen: Soft, nontender, no organomegaly, bowel sounds present Neuro: No focal deficits, no facial deformity, AO x3, power 5/5 in all limbs Data 05/27/24 02:55 05/27/24 02:55 Micro: Microbiology 05/26/24 18:34 Bacterial Antigens - Final Urine Kidney 05/26/24 18:06 Blood Culture - Preliminary Blood SPECIMEN COLLECTED 05/26/24 16:21 Blood Culture - Preliminary Blood SPECIMEN COLLECTED A&P Assessment and plan (1) Atrial fibrillation with RVR: Chronic atrial fibrillation. Also gives history of cardioversion in the past. History of getting hypotensive on metoprolol. In past was on 50 every morning and 25 nightly of metoprolol which was gradually weaned off given episodes of hypotension. Currently on 12.5 mg of metoprolol twice daily. Continue with amiodarone drip as per protocol. Switch to 200 mg twice daily once drip runs off. Metoprolol 25 mg twice daily. Will uptitrate as per blood pressure. Target heart rate 80?100. Continue with normal saline at 50 cc/h. Continue with home dose of Xarelto. Echocardiogram pending. (2) Hypertension: Goal blood pressure less than 140/90 mmHg with mean over 65. Monitor blood pressures and will uptitrate metoprolol accordingly. Qualifiers: Hypertension type: primary hypertension Qualified Code(s): I10 - Essential (primary) hypertension (3) COPD (chronic obstructive pulmonary disease): Not in exacerbation. Continue with ipratropium, Xopenex every 6 hours, Pulmicort twice daily. (4) Weakness: Unknown cause. Most likely in setting of dehydration along with tachycardia due to RVR versus progression of baseline dementia. Appreciate normal TSH, vitamin B12, folate level. No concerns for infection for now. Urinalysis, procalcitonin appreciated. Respiratory viral panel negative. Check echocardiogram as above. Infectious cause less likely for now as patient does not have leukocytosis, history of fever or dysuria. Hold off on starting any antibiotics for now. Could be in setting of mild hyponatremia. Sodium level improving. IV fluid as above. Continue to monitor BMP daily. Physical therapy evaluation. (5) Anticoagulation adequate with anticoagulant therapy: (6) Lewy body dementia: Continue with home dose of Namenda. Frequent reorientation. Plan CODE STATUS: Discussed in detail with patient and spouse at bedside. Spouse will be the DPOA. DNR/DNI. Cardiac diet Protonix for PUD prophylaxis Xarelto will be sufficient for DVT prophylaxis Discharge plan: Discussed in detail with patient's spouse at bedside. Spoke with the DPOA. Discussed about SNF versus home with home health. Spouse would prefer home with home health pending physical therapy evaluation. Attestations 2 Medical Necessity Statement*: Requires further hospitalization for management of A-fib with RVR, episodes of hypotension, weakness while safe discharge planning is sought. Diagnoses Atrial fibrillation with RVR I48.91 Primary hypertension I10 Hypertension type: primary hypertension COPD (chronic obstructive pulmonary disease) J44.9 Weakness R53.1 Anticoagulation adequate with anticoagulant therapy Z79.01 Lewy body dementia G31.83; F02.80
[2024-05-27] MEDS: sodium chloride 0.9% 1,000 ML 50 ML IV (13:14)
[2024-05-27] MEDS: ipratropium 0.5 mg/2.5 mL Neb INHALATION ×2 (13:16→21:02)
[2024-05-27] MEDS: levalbuterol 0.63 mg/3 mL Neb INHALATION ×2 (13:16→21:02)
--- NOTE | 2024-05-27 15:59 | USCV_ITS ---
Reid Farooq Age: 84 Gender: M : 1940 Exam Date: 05/27/2024 15:50 Ordering Phys: David Archibald MD Technologist: Tank Ramirez Exam Location: [facility] – [place], [place] Indication: afib BP: 110 / 73 HR: 88 Rhythm: Atrial fibrillation Technical Quality: Adequate MEASUREMENTS (Male / Female) Normal Values 2D ECHO LV Diastolic Diameter PLAX 4.6 cm 4.2 - 5.9 / 3.9 - 5.3 cm IVS Diastolic Thickness 1.1 cm 0.6 - 1.0 / 0.6 - 0.9 cm IVS Systolic Thickness 1.5 cm LVPW Diastolic Thickness 1.5 cm 0.6 - 1.0 / 0.6 - 0.9 cm LVPW Systolic Thickness 1.7 cm LVOT Diameter 2.0 cm LV Ejection Fraction 2D Teich 67.6 % LV Ejection Fraction MOD 4C 60.7 % LV Ejection Fraction MOD 2C 68.7 % LV Ejection Fraction 2C AL 68.9 % LA Diameter 4.9 cm LA Sys Volume AL 54.2 cm cubed LA Sys Volume Index AL 29.5 cm cubed/m squared Aorta at Sinotubular Diameter 2.7 cm M-MODE LA Ao Ratio MM 1.5 AV Cusp Separation MM 1.4 cm DOPPLER AV Peak Velocity 96.0 cm/s LVOT Peak Velocity 68.0 cm/s AV Area Cont Eq vti 1.9 cm squared AV Area Cont Eq pk 2.2 cm squared MV Peak Velocity 70.0 cm/s MV Area PHT 5.8 cm squared Mitral E to A Ratio 39.3 TV Peak Velocity 203.5 cm/s TR Peak Velocity 234.0 cm/s TR Peak Gradient 21.9 mmHg TR Mean Velocity 204.0 cm/s TR Mean Gradient 17.2 mmHg TR Velocity Time Integral 69.1 cm PV Peak Velocity 53.0 cm/s RV Ejection Time 0.2 s FINDINGS Left Ventricle Normal LV size with slightly diminished ejection fraction of 50 to 55%. Moderate hypokinesia of the basal inferolateral wall segment. Right Ventricle The right ventricle is normal in size and function. Right Atrium Mildly increased right atrial size. Left Atrium Mildly increased left atrial size. Mitral Valve Thickened mitral valve. Mild mitral annular calcification. Aortic Valve Thickened aortic valve. Tricuspid Valve Trace tricuspid valve regurgitation. Pulmonic Valve Pulmonic valve not well visualized. Pericardium No pericardial effusion. Aorta Normal aortic annulus size. IVC Inferior vena cava not visualized. CONCLUSIONS Normal LV size with slightly diminished ejection fraction of 50 to 55%. Moderate hypokinesia of the basal inferolateral wall segment. Mild biatrial enlargement. Thickened mitral valve. Mild mitral annular calcification. Thickened aortic valve. Trace tricuspid valve regurgitation. There is no pericardial effusion. There are no intracardiac masses. Compared to the study from 01/24/2023, there is slight decline in the LV ejection fraction Dr Mayo Garcia MD FAC (Electronically Signed) Final Date: 27 May 2024 18:33 S
[2024-05-27] MEDS: rivaroxaban 10 mg Tablet 20 MG PO (17:47)
[2024-05-27] MEDS: amiodarone 200 mg Tablet PO (17:47)
[2024-05-27] MEDS: atorvastatin 40 mg Tablet 20 MG PO (17:47)
[2024-05-28] VITALS (47 sets, daily range): BP systolic 93–145; BP diastolic 54–112; PULSE 66–137; RESP 11–30; TEMP 36.2–36.7; O2SAT 90–98; BMI 24.8
[2024-05-28 04:16] LABS: Basophils % 0.1 %; Eosinophils # 0.1 10^3/uL (0.0-0.8); Eosinophils % 0.7 %; Hematocrit 43.1 % (37-53); Lymphocytes # 3.4 10^3/uL (0.8-4.8); Lymphocytes % 40.6 %; Mean Corpuscular HGB Conc 34.6 g/dL (30-55); Mean Corpuscular Hemoglobin 31.6 pg (27-33); Mean Corpuscular Volume 91.3 fl (82-101); Mean Platelet Volume 8.9 fL (7.4-10.4); Monocytes # 0.6 10^3/uL (0.2-0.9); Neutrophils # 4.29 10^3/uL (1.8-7.7); Neutrophils % 51.2 %; Nucleated Red Blood Cells % 0 %; Platelet Count 253 10^3/cmm (157-399); Red Blood Count 4.72 10^6/uL (3.85-5.65); Red Cell Distribution Width 12.6 % (12.1-15.1); White Blood Count 8.38 10^3/uL (3.29-11.43)
[2024-05-28 04:37] LABS: Alanine Aminotransferase 16 U/L (0-41); Albumin Level 3.5 g/dL (3.5-5.2); Alkaline Phosphatase 105 U/L (40-130); Blood Urea Nitrogen 9 mg/dL (8-23); Calcium 8.8 mg/dL (8.5-10.5); Carbon Dioxide 24 mmol/L (22-29); Chloride 102 mmol/L (98-107); Creatinine Clr Calc Pharmacy 63.9902; Globulin 2.6 g/dL (1.3-4.6); Glucose 112 mg/dL (65-115); Osmolality Calculated 281 mOsm/kg (285-295); Sodium 136 mmol/L (136-145); Total Bilirubin 0.6 mg/dL (0.15-1.2); Total Protein 6.1 g/dL (6.6-8.7)
[2024-05-28 04:47] LABS: Anion Gap 13.8 (5-19); Aspartate Amino Transferase 19 U/L (0-40); Potassium 3.8 mmol/L (3.5-5.1)
--- NOTE | 2024-05-28 06:17 | PC.NURSE ---
patient resting in bed, 1:1 sitter at bedside, patient is pleasantly confused, restless at time, pulling at lines, but is redirectable, no distress, no needs at this time
[2024-05-28] MEDS: metoprolol tartrate 25 mg Tablet PO ×2 (09:05→18:16)
[2024-05-28] MEDS: memantine 5 mg tablet 10 MG PO ×2 (09:05→18:15)
[2024-05-28] MEDS: sodium chloride 0.9% 1,000 ML 50 ML IV (09:06)
[2024-05-28] MEDS: pantoprazole DR 40 mg Tablet PO (09:06)
[2024-05-28] MEDS: amiodarone 200 mg Tablet PO ×2 (09:06→18:16)
[2024-05-28] MEDS: digoxin 250 mcg/ml INJ 2 mL IVP (09:52)
[2024-05-28] MEDS: FUROsemide 10 mg/mL SDV 2mL 20 MG IVP (09:53)
--- NOTE | 2024-05-28 11:50 | PC.SOCIAL ---
IMM Update pg 2 of IMM updated and reviewed w/ patient. Copy provided and copy dated, initialed and placed in chart.
--- NOTE | 2024-05-28 12:41 | P.PN_ITS ---
Subjective 2 Subjective: Seen with spouse at bedside. Other family members at bedside as well. Blood pressure is better overnight. Patient did have a restless night. Heart rates running in 110s overnight mostly. Some readings in 80s as well. Patient otherwise denies any nausea vomiting, headache. Remains on room air. Vitals/I&O/Wt Last Vital Signs Temp 97.1 F L 05/28/24 08:30 Pulse 116 H 05/28/24 08:30 Resp 19 H 05/28/24 08:30 BP 144/87 05/28/24 08:30 Pulse Ox 96 05/28/24 08:30 O2 Del Method Room Air 05/28/24 08:00 O2 Flow Rate 1 05/27/24 17:00 05/27/24 05/28/24 05/28/24 22:59 06:59 14:59 Intake Total 300 / 2106.692 7594.333 / 1353.333 Output Total 100 / 350 Balance 200 / 8160.121 7754.333 / 1353.333 Weight last 48 hrs Weight 69.9 kg Weight 69.5 kg Weight 71.838 kg Weight 69.49 kg Weight 73 kg Physical Exam 2 Narrative: General: No acute distress, AO x 2-3, mildly confused HEENT: PERRLA, pupils bilaterally equal and reactive Chest: Bilateral bronchial breath sounds all over lung longo occasional rhonchi CVS: S1-S2 irregularly irregular, tachycardia, no gallops, no rubs Abdomen: Soft, nontender, no organomegaly, bowel sounds present Neuro: No focal deficits, no facial deformity, AO x3, power 5/5 in all limbs Data 05/28/24 03:43 05/28/24 03:43 Micro: Microbiology 05/26/24 18:06 Blood Culture - Preliminary Blood NEGATIVE TO DATE 05/26/24 16:21 Blood Culture - Preliminary Blood NEGATIVE TO DATE 05/26/24 18:34 Bacterial Antigens - Final Urine Kidney A&P Assessment and plan (1) Atrial fibrillation with RVR: Chronic atrial fibrillation. Also gives history of cardioversion in the past. History of getting hypotensive on metoprolol. In past was on 50 every morning and 25 nightly of metoprolol which was gradually weaned off given episodes of hypotension. Currently on 12.5 mg of metoprolol twice daily. Continue with amiodarone 200 mg twice daily. Metoprolol 25 mg twice daily. Blood pressures occasionally soft so we will avoid going up on metoprolol for now. Patient's creatinine has remained stable, potassium stable. Will plan for digoxin load with 250 mcg one-time followed by 125 mcg for 2 doses every 6 hours. Will plan for digoxin level check in AM. If heart rate not getting controlled with consult cardiology for possible cardioversion. Oral intake improving. Patient overall around 3 L positive. 20 mg IV Lasix one-time. Continue with home dose of Xarelto. Echocardiogram pending. (2) Hypertension: Goal blood pressure less than 140/90 mmHg with mean over 65. Monitor blood pressures and will uptitrate metoprolol accordingly. Qualifiers: Hypertension type: primary hypertension Qualified Code(s): I10 - Essential (primary) hypertension (3) COPD (chronic obstructive pulmonary disease): Not in exacerbation. Continue with ipratropium, Xopenex every 6 hours, Pulmicort twice daily. (4) Weakness: Unknown cause. Most likely in setting of dehydration along with tachycardia due to RVR versus progression of baseline dementia. Appreciate normal TSH, vitamin B12, folate level. No concerns for infection for now. Urinalysis, procalcitonin appreciated. Respiratory viral panel negative. Echocardiogram shows an EF of 50% with regional wall motion abnormality with moderate hypokinesia of the basal inferior lateral wall, biatrial enlargement. Infectious cause less likely for now as patient does not have leukocytosis, history of fever or dysuria. Hold off on starting any antibiotics for now. Could be in setting of mild hyponatremia. So far resolved. Continue to monitor BMP daily. Physical therapy evaluation. (5) Anticoagulation adequate with anticoagulant therapy: (6) Lewy body dementia: Continue with home dose of Namenda. Frequent reorientation. Plan ACS: Denies any active chest pain. Echocardiogram shows regional wall motion abnormality, decrease in EF 50%. Discussed in detail with the patient's family and DPOA. Can plan for Lexiscan stress test once patient's heart rate better controlled. Family is agreeable. Appreciate A1c, lipid panel. Add atorvastatin 20 mg oral daily. CODE STATUS: Discussed in detail with patient and spouse at bedside. Spouse will be the DPOA. DNR/DNI. Cardiac diet Protonix for PUD prophylaxis Xarelto will be sufficient for DVT prophylaxis Discharge plan: Discussed in detail with patient's spouse at bedside. Spoke with the DPOA. Discussed about SNF versus home with home health. Spouse would prefer home with home health pending physical therapy evaluation. Attestations 2 Medical Necessity Statement*: Requires further hospitalization for management of A-fib with RVR, generalized weakness with new low EF of 50% and regional wall motion abnormality while ACS is ruled out Diagnoses Atrial fibrillation with RVR I48.91 Primary hypertension I10 Hypertension type: primary hypertension COPD (chronic obstructive pulmonary disease) J44.9 Weakness R53.1 Anticoagulation adequate with anticoagulant therapy Z79.01 Lewy body dementia G31.83; F02.80
[2024-05-28 13:24] LABS: Digoxin 0.3 ng/mL (0.6-1.2)
[2024-05-28] MEDS: digoxin 250 mcg/ml INJ 2 mL 125 MCG IVP ×2 (16:19→20:50)
[2024-05-28] MEDS: atorvastatin 40 mg Tablet 20 MG PO (18:15)
[2024-05-28] MEDS: rivaroxaban 10 mg Tablet 20 MG PO (18:15)
--- NOTE | 2024-05-28 22:22 | ECG_ITS ---
[facility] Test Date: 2024-05-29 Pat Name: Reid Farooq Department: Room: ICU07 Gender: Male [employer]: : 1940 Requested By: David Archibald Order Number: [id number] Antonio MD: Rodrigue Zhou M.D. Interpretive Statements NAME OF STUDY: LEXISCAN SESTAMIBI STRESS TEST INDICATION: [NEW LOW EF, ] Procedure: At the baseline, the blood pressure was 108/79 mmHg with a heart rate of 91 bpm. The electrocardiogram showed atrial fibrillation, right bundle branch block. The Lexiscan was infused over a period of 20 seconds. A total of 0.4 mg of Lexiscan was infused. The stress phase was continued for a total of 5 minutes. Heart rate was at the end of stress phase was 107 bpm and a blood pressure of 92/58 mmHg. The EKG at the peak infusion revealed atrial fibrillation with rapid ventricular rate. Sestamibi was injected 20 seconds after the Lexiscan infusion. Blood pressure at the end of recovery phase was 102/59 mmHg with a heart rate of 113 bpm. Conclusion: 1. Normal EKG response to Lexiscan infusion 2. No Lexiscan induced chest pain or cardiac arrhythmia. 3. Normal blood pressure and heart rate response. 4. Sestamibi/sestamibi perfusion scan pending; see separate report. Electronically Signed On 06-01-2024 19:35:36 CDT by Rodrigue Zhou M.D. [email or web address]
[2024-05-29] VITALS (33 sets, daily range): BP systolic 102–150; BP diastolic 59–94; PULSE 69–134; RESP 13–28; TEMP 36.4–36.5; O2SAT 92–98; BMI 24.3
--- NOTE | 2024-05-29 04:02 | PC.NURSE ---
Addendum entered by RAHUL Mcghee 05/29/24 05:41: Second void at 05:35. Unable to measure due to incontinence. Soaked one brief. Original Note: Void Patient is incontinent; unable to measure output. Soaked one brief.
[2024-05-29 04:12] LABS: Basophils % 0.3 %; Eosinophils # 0.1 10^3/uL (0.0-0.8); Eosinophils % 1.5 %; Hematocrit 46.1 % (37-53); Lymphocytes # 3.6 10^3/uL (0.8-4.8); Mean Corpuscular HGB Conc 33.6 g/dL (30-55); Mean Corpuscular Hemoglobin 31.8 pg (27-33); Mean Corpuscular Volume 94.5 fl (82-101); Mean Platelet Volume 8.6 fL (7.4-10.4); Monocytes # 0.6 10^3/uL (0.2-0.9); Monocytes % 7.3 %; Neutrophils # 3.65 10^3/uL (1.8-7.7); Neutrophils % 45.6 %; Nucleated Red Blood Cells % 0 %; Platelet Count 242 10^3/cmm (157-399); Red Blood Count 4.88 10^6/uL (3.85-5.65); Red Cell Distribution Width 12.8 % (12.1-15.1); White Blood Count 7.98 10^3/uL (3.29-11.43)
[2024-05-29 04:36] LABS: Alanine Aminotransferase 15 U/L (0-41); Albumin Level 3.3 g/dL (3.5-5.2); Alkaline Phosphatase 120 U/L (40-130); Anion Gap 14.3 (5-19); Aspartate Amino Transferase 15 U/L (0-40); Blood Urea Nitrogen 10 mg/dL (8-23); Calcium 8.8 mg/dL (8.5-10.5); Carbon Dioxide 23 mmol/L (22-29); Chloride 101 mmol/L (98-107); Globulin 2.9 g/dL (1.3-4.6); Glucose 115 mg/dL (65-115); Osmolality Calculated 278 mOsm/kg (285-295); Potassium 4.3 mmol/L (3.5-5.1); Sodium 134 mmol/L (136-145); Total Bilirubin 0.9 mg/dL (0.15-1.2); Total Protein 6.2 g/dL (6.6-8.7)
[2024-05-29 04:40] LABS: Digoxin 1.5 ng/mL (0.6-1.2)
[2024-05-29] MEDS: sodium chloride 0.9% 1,000 ML 50 ML IV (05:08)
--- NOTE | 2024-05-29 06:43 | PC.NURSE ---
IV Fluids: NS paused for transport to stress test, see MAR .
[2024-05-29] MEDS: regadenoson 0.4 Mg/5 ml Syringe IVP (07:15)
--- NOTE | 2024-05-29 07:45 | PC.NURSE ---
Off unit to iman scan with nuc med staff
--- NOTE | 2024-05-29 08:28 | PC.NURSE ---
Back from Kate scan
[2024-05-29] MEDS: memantine 5 mg tablet 10 MG PO (08:46)
[2024-05-29] MEDS: pantoprazole DR 40 mg Tablet PO (08:46)
[2024-05-29] MEDS: metoprolol tartrate 25 mg Tablet PO (08:46)
[2024-05-29] MEDS: amiodarone 200 mg Tablet PO (08:47)
--- NOTE | 2024-05-29 11:37 | PM.DCS ---
Discharge Providers Date of Admission: 05/26/24 14:59 Date of Discharge: May 29, 2024 Attending Provider at Admission: David Archibald MD Attending Provider at Discharge: David Archibald MD Primary Care Provider: Pavel Randall DO Diagnoses at Discharge Discharge Diagnosis (1) Atrial fibrillation with RVR: Status: Acute (2) Hypertension: Status: Acute Qualifiers: Hypertension type: primary hypertension Qualified Code(s): I10 - Essential (primary) hypertension (3) COPD (chronic obstructive pulmonary disease): Status: Acute (4) Weakness: Status: Acute (5) Anticoagulation adequate with anticoagulant therapy: Status: Acute Permanent problem details: Xarelto (6) Lewy body dementia: Status: Acute Reason for Visit Reason for Visit: weakness Hospital Course Hospital Course Reid Farooq is a 84 year old male with past medical history of atrial fibrillation on Xarelto, hypertension with episode of hypotension on metoprolol, COPD, dementia, hyperlipidemia who presents to the ER today from home with his family for generalized weakness which has been getting worse over last 1 week to 10 days with multiple episodes of fall. Patient was in the ER a week ago for the same reason at which he was diagnosed of atrial fibrillation with rapid ventricular response and was discharged on 12.5 twice daily of metoprolol. Because his symptoms are getting worse so they presented back to the ER today. In the ER he was again found to be in rapid ventricular response for which she was given extra 12.5 mg of oral metoprolol. On examination patient's heart rate is running between 95?110 at rest on room air with blood pressure of 110/60 mmHg He denies any nausea, vomiting, headache, dysuria, sick contacts, difficulty breathing, chest pain but does complain of constipation with last bowel movement around 2 days ago. Family also complains of decreased oral intake within last 1 week. Patient was admitted to the hospital further evaluation and management of A-fib with RVR along with generalized weakness. Infectious causes were ruled out. Managing his heart rate was complicated given episodes of hypotension. He was started on IV amiodarone which was later transitioned to oral medication. As he continued to remain tachycardic he was started on digoxin to which he responded well. Echocardiogram was done which showed slight decrease in EF to 50 to 55% along with regional wall motion abnormality. ACS was ruled out with a negative stress test. Safe discharge plan were discussed in detail with patient and patient's spouse at bedside who wanted to discharge home with home health. He has been discharged in hemodynamically stable condition with home health on adjusted medications. Physical Exam Narrative: General: No acute distress, AO x 2-3, mildly confused HEENT: PERRLA, pupils bilaterally equal and reactive Chest: Bilateral bronchial breath sounds all over lung longo occasional rhonchi CVS: S1-S2 irregularly irregular, tachycardia, no gallops, no rubs Abdomen: Soft, nontender, no organomegaly, bowel sounds present Neuro: No focal deficits, no facial deformity, AO x3, power 5/5 in all limbs Discharge Data Studies Completed and Pending Completed Studies During Hospitalization Category Date Time Status Sestamibi Stress Test Request Routine Exams 05/28/24 22:22 Draft XR chest 1V portable [id number] Stat Exams 05/26/24 11:44 Completed NM trista perf SPECT r/s* [id number] Routine Nuc Med 05/29/24 22:22 Completed CV. echo complete* [id number] Routine Ultrasound 05/27/24 15:59 Completed Pending at discharge Category Date Time Status Blood Culture Stat Lab 05/26/24 18:06 Results Radiology Impressions Chest X-Ray 05/26/24 11:44 IMPRESSION: Persistent bibasilar reticular opacities. This likely represents atelectasis and/or chronic peripheral reticular disease/scarring. No distinct focal consolidation to suggest overlying pneumonia. Echocardiogram: CONCLUSIONS Normal LV size with slightly diminished ejection fraction of 50 to 55%. Moderate hypokinesia of the basal inferolateral wall segment. Mild biatrial enlargement. Thickened mitral valve. Mild mitral annular calcification. Thickened aortic valve. Trace tricuspid valve regurgitation. There is no pericardial effusion. There are no intracardiac masses. Compared to the study from 01/24/2023, there is slight decline in the LV ejection fraction Dr Mayo Garcia MD [facility] (Electronically Signed) Final Date: 27 May 2024 Lexiscan stress test: PERFUSION FINDINGS SPECT images demonstrate homogeneous tracer distribution throughout the myocardium. FUNCTIONAL RESULTS (calculated via Gated SPECT) Stress Image LV EF (%): 65 Stress EDV (mL):51 TID: 0.92 Stress ESV (mL):18 FUNCTIONAL FINDINGS: There is normal left ventricular systolic function. IMPRESSIONS 1. Normal myocardial perfusion imaging with no evidence of ischemia 2. LV systolic function is normal Rodrigue Zhou MD (Electronically Signed) Final Date: 29 May 2024 Laboratory Results WBC 7.98 10^3/uL (3.29-11.43) 05/29/24 03:48 RBC 4.88 10^6/uL (3.85-5.65) 05/29/24 03:48 Hgb 15.50 g/dL (11.27-16.99) 05/29/24 03:48 Hct 46.1 % (37-53) 05/29/24 03:48 MCV 94.5 fl (82-101) 05/29/24 03:48 MCH 31.8 pg (27-33) 05/29/24 03:48 MCHC 33.6 g/dL (30-55) 05/29/24 03:48 RDW 12.8 % (12.1-15.1) 05/29/24 03:48 Plt Count 242 10^3/cmm (157-399) 05/29/24 03:48 MPV 8.6 fL (7.4-10.4) 05/29/24 03:48 Neut % (Auto) 45.6 % 05/29/24 03:48 Lymph % (Auto) 45.0 % 05/29/24 03:48 [place] % (Auto) 7.3 % 05/29/24 03:48 Eos % (Auto) 1.5 % 05/29/24 03:48 Baso % (Auto) 0.3 % 05/29/24 03:48 Neut # (Auto) 3.65 10^3/uL (1.8-7.7) 05/29/24 03:48 Lymph # (Auto) 3.6 10^3/uL (0.8-4.8) 05/29/24 03:48 [place] # (Auto) 0.6 10^3/uL (0.2-0.9) 05/29/24 03:48 Eos # (Auto) 0.1 10^3/uL (0.0-0.8) 05/29/24 03:48 Baso # (Auto) 0.0 10^3/uL (0.0-0.1) 05/29/24 03:48 Nucleated RBC % (auto) 0 % 05/29/24 03:48 Nucleated RBCs # 0.0 /100WBC 05/29/24 03:48 Sodium 134 mmol/L (136-145) L 05/29/24 03:48 Potassium 4.3 mmol/L (3.5-5.1) 05/29/24 03:48 Chloride 101 mmol/L (98-107) 05/29/24 03:48 Carbon Dioxide 23 mmol/L (22-29) 05/29/24 03:48 Anion Gap 14.3 (5-19) 05/29/24 03:48 BUN 10 mg/dL (8-23) 05/29/24 03:48 Creatinine 0.7 mg/dL (0.7-1.2) 05/29/24 03:48 GFR Calculation Not Reportable 05/29/24 03:48 Glucose 115 mg/dL (65-115) 05/29/24 03:48 Estimat Average Glucose 128 05/27/24 02:55 Hemoglobin A1c 6.1 % (4.0-6.0) H 05/27/24 02:55 Calculated Osmolality 278 mOsm/kg (285-295) L 05/29/24 03:48 Calcium 8.8 mg/dL (8.5-10.5) 05/29/24 03:48 Phosphorus 3.1 mg/dL (2.5-4.5) 05/27/24 02:55 Magnesium 2.2 mg/dL (1.7-2.3) 05/27/24 02:55 Iron 77 ug/dL (59-158) 05/26/24 14:04 TIBC 253 mcg/dl 05/26/24 14:04 % Saturation 30.4 % (20-50) 05/26/24 14:04 Unsat Iron Binding 176 ug/dL (112-347) 05/26/24 14:04 Total Bilirubin 0.9 mg/dL (0.15-1.2) 05/29/24 03:48 AST 15 U/L (0-40) 05/29/24 03:48 ALT 15 U/L (0-41) 05/29/24 03:48 Alkaline Phosphatase 120 U/L (40-130) 05/29/24 03:48 Troponin T Baseline 10 ng/L (0-15) 05/26/24 11:53 Troponin T 120 Minute 17.45 ng/L (0-15) H 05/26/24 14:04 Delta Troponin T 7.45 ABS# (0-10) 05/26/24 14:04 Troponin T Hi Sens 6Hr 8.84 ng/L (0-15) 05/26/24 18:20 Troponin T Hi Sens 6Hr Delta -1.16 ng/L (0-12) L 05/26/24 18:20 Total Protein 6.2 g/dL (6.6-8.7) L 05/29/24 03:48 Albumin 3.3 g/dL (3.5-5.2) L 05/29/24 03:48 Globulin 2.9 g/dL (1.3-4.6) 05/29/24 03:48 Triglycerides 86 mg/dL (0-150) 05/27/24 02:55 Cholesterol 202 mg/dL (0-200) H 05/27/24 02:55 LDL Cholesterol, Calc 139 mg/dL (50-129) H 05/27/24 02:55 HDL Cholesterol 46 mg/dL (60-100) L 05/27/24 02:55 LDL/HDL Ratio 3.02 RATIO (0.00-3.22) 05/27/24 02:55 Cholesterol/HDL Ratio 4.39 mg/dL (1.0-5.00) 05/27/24 02:55 Vitamin B12 502 pg/mL (232-1245) 05/26/24 14:04 Folate > 20.0 ng/mL (4.5-32.2) 05/27/24 02:55 Procalcitonin 0.03 ng/mL (0-0.5) 05/27/24 02:55 TSH 1.68 uIU/mL (0.27-4.20) 05/26/24 14:04 Urine Color Dark yellow (Yellow) A 05/26/24 18:34 Urine Appearance Clear (CLEAR) 05/26/24 18:34 Urine pH 5.5 (5-7) 05/26/24 18:34 Ur Specific [place] 1.022 (1.005-1.030) 05/26/24 18:34 Urine Protein Negative (Negative) 05/26/24 18:34 Urine Glucose (UA) Negative (Normal) 05/26/24 18:34 Urine Ketones 1+ (Negative) H 05/26/24 18:34 Urine Blood Negative (Negative) 05/26/24 18:34 Urine Nitrate Negative (Negative) 05/26/24 18:34 Urine Bilirubin Negative (Negative) 05/26/24 18:34 Urine Urobilinogen 1.0 mg/dL (Negative) 05/26/24 18:34 Ur Leukocyte Esterase Negative (Negative) 05/26/24 18:34 Urine RBC 0-2 /hpf (0-2) 05/26/24 18:34 Urine WBC 0-5 /hpf (0-5) 05/26/24 18:34 Ur Squamous Epith Cells 0-5 /hpf (0-5) 05/26/24 18:34 Amorphous Sediment Not Reportable 05/26/24 18:34 Urine Bacteria None seen /hpf (NONE) 05/26/24 18:34 Hyaline Casts 2.87 /lpf 05/26/24 18:34 Urine Mucus 3+ /hpf 05/26/24 18:34 Digoxin 1.5 ng/mL (0.6-1.2) H 05/29/24 03:48 Adenovirus (PCR) Not detected (NOT DETECT) 05/26/24 16:24 C. pneumoniae DNA (PCR) Not detected (NOT DETECT) 05/26/24 16:24 Coronavirus 229E (PCR) Not detected (NOT DETECT) 05/26/24 16:24 Human Metapneumovir PCR Not detected (NOT DETECT) 05/26/24 16:24 Influenza A (H1) PCR Not detected (NOT DETECT) 05/26/24 16:24 Influ A (H1/09) PCR Not detected (NOT DETECT) 05/26/24 16:24 Influenza A (H3) PCR Not detected (NOT DETECT) 05/26/24 16:24 Influenza Type A (PCR) Not detected (NOT DETECT) 05/26/24 16:24 Influenza Type B (PCR) Not detected (NOT DETECT) 05/26/24 16:24 M. pneumoniae (PCR) Not detected (NOT DETECT) 05/26/24 16:24 Parainfluenza 1 (PCR) Not detected (NOT DETECT) 05/26/24 16:24 Parainfluenza 2 (PCR) Not detected (NOT DETECT) 05/26/24 16:24 Parainfluenza 3 (PCR) Not detected (NOT DETECT) 05/26/24 16:24 Parainfluenza 4 (PCR) Not detected (NOT DETECT) 05/26/24 16:24 RSV Type A (PCR) Not detected (NOT DETECT) 05/26/24 16:24 RSV Type B (PCR) Not detected (NOT DETECT) 05/26/24 16:24 Entero/Rhino (PCR) Not detected (NOT DETECT) 05/26/24 16:24 SARS-CoV-2 (PCR) Not detected (NOT DETECT) 05/26/24 16:24 Vitals Last Vital Signs Temp 97.7 F 05/29/24 08:53 Pulse 97 05/29/24 09:30 Resp 20 H 05/29/24 09:30 BP 125/76 05/29/24 09:30 Pulse Ox 95 05/29/24 08:30 O2 Del Method Room Air 05/29/24 09:05 O2 Flow Rate 1 05/27/24 17:00 Discharge Plan Discharge Patient Disposition: Home Condition: Stable Prescriptions: New amiodarone [Pacerone] 200 mg Tablet See Rx Instructions .ROUTE .COMPLEX Qty: 60 0RF Rx Instructions: 200 mg orally ;200 mg twice daily for next 7 days followed by 200 mg daily digoxin 125 mcg (0.125 mg) tablet 125 mcg PO EVERY OTHER DAY Qty: 30 0RF Continued calcium polycarbophil 625 mg tablet 1,250 mg PO DAILY PRN (Reason: unknown) docusate sodium 50 mg capsule 50 mg PO TID PRN (Reason: Constipation) polyethylene glycol 3350 [Miralax] 17 gram/dose powder 17 g PO DAILY PRN (Reason: Constipation) azelastine 137 mcg (0.1 %) aerosol,spray 1 spray INTRANASAL BID PRN (Reason: unknown) cetirizine 10 mg tablet 10 mg PO QPM Combivent Respimat 20-100 mcg/actuation mist 1 puff INHALATION QID cholecalciferol (vitamin D3) 25 mcg (1,000 unit) capsule 1,000 unit PO QAM multivitamin Tablet 1 tab PO QAM omeprazole 20 mg capsule,delayed release(DR/EC) 20 mg PO QAM Refresh Liquigel 1 % drops, liquid gel 2 drop ophthalmic (eye) QID Xarelto 20 mg tablet 20 mg PO QPM Hold Instructions: Resume on 11/01/21. (DME) Accomodative inserts See Rx Instructions .Route .MEDSUPPLY Qty: 1 0RF Rx Instructions: As directed Aimovig Autoinjector 140 mg/mL auto-injector 140 mg SUBCUT Q30D Qty: 1 6RF Rx Instructions: Subcutaneous each month galantamine 12 mg tablet 12 mg PO BID Qty: 180 3RF memantine 10 mg tablet 10 mg PO BID Qty: 180 2RF (DME) diabetic shoes See Rx Instructions .Route .MEDSUPPLY Qty: 1 0RF Rx Instructions: As directed metoprolol tartrate 25 mg tablet 25 mg PO BID glucosamine-chondroitin [Osteo Bi-Flex] 250-200 mg Tablet 1 tab PO QAM magnesium oxide 400 mg magnesium Tablet 400 mg PO QAM Changed metoprolol tartrate 25 mg tablet 12.5 mg PO BID PRN (Reason: HR more than 110 bpm) Qty: 30 0RF Discharge Orders: Discharge Order (Routine); Ordered 05/29/24 Ordered By: David Archibald Referrals: Pavel Randall, DO [Primary Care Provider] - Patient Instructions: Opioid Safety Activity Restrictions/Additional Instructions: Take amiodarone 200 mg twice daily for next 1 week followed by 200 mg daily. Take metoprolol 25 mg twice daily. You can take 12.5 mg twice daily as needed of metoprolol for heart rate of more than 110 bpm. Take digoxin 0.125 mcg every other day. You should repeat renal function and digoxin level within next 1 week. Please make sure not to take digoxin on the day off testing the levels. Discharge Attestations Time Spent in Discharge Care*: greater than 30 min Specific Discharge Activities: educating and/or supporting family/caregiver, discussing with pcp/other providers, discussing with human services case manager/social workers/dc planners, documenting/other paperwork and evaluating patient/reviewing data Status at Discharge: Cognitive status at discharge: moderately impaired cognition, Behavioral status at discharge: cooperative, Functional status at discharge: uses cane/walker, Overall status at discharge: patient is back to baseline Quality Metrics Clinical Quality Measures [ No reported AMI, CVA or VTE this stay] Coding Level of Care Code 49805 Total time (in minutes) for Discharge: 60 Diagnoses Atrial fibrillation with RVR I48.91 Primary hypertension I10 Hypertension type: primary hypertension COPD (chronic obstructive pulmonary disease) J44.9 Weakness R53.1 Anticoagulation adequate with anticoagulant therapy Z79.01 Lewy body dementia G31.83; F02.80
--- NOTE | 2024-05-29 16:31 | PC.NURSE ---
All D/C instructions educated to patient and , Chava blackwell em[facility] transported patient home son and at bedside
--- NOTE | 2024-05-29 22:22 | NMCV_ITS ---
NM trista perf SPECT r/s* [id number] Reid Farooq Age: 84 Gender: M : 1940 Exam Date: 05/29/2024 06:10 Ordering Phys: David Archibald MD Technologist: RAJESH Salazar Exam Location: [facility] Indications: CP STRESS TEST Please see separate stress test report in [facility] for full findings IMAGE PROTOCOL Rest/Stress 1 Lexiscan Day Radiopharmaceutical Dose (mCi) Administration Site Administered by Rest: Tc-99m 10.6 IV RAJESH Salazar Sestamibi Stress:Tc-99m 32.7 IV RAJESH Salazar Sestamibi Rest: 29-May-2024 60 Discovery 630 Stress: 29-May-2024 45 Discovery 630 0.4mg Lexiscan. Supine position only as patient was unable to lay prone. SPECT RESULTS Technical Quality: Good Raw Data Analysis: Normal Image Corrections: No attenuation or motion correction applied Summed Stress Score: 0 Summed Rest Score: 0 Summed Difference Score: 0 PERFUSION FINDINGS SPECT images demonstrate homogeneous tracer distribution throughout the myocardium. FUNCTIONAL RESULTS (calculated via Gated SPECT) Stress Image LV EF (%): 65 Stress EDV (mL):51 TID: 0.92 Stress ESV (mL):18 FUNCTIONAL FINDINGS: There is normal left ventricular systolic function. IMPRESSIONS 1. Normal myocardial perfusion imaging with no evidence of ischemia 2. LV systolic function is normal Rodrigue Zhou MD (Electronically Signed) Final Date: 29 May 2024 10:01 S
== END 2024-05-29 16:33 | disposition home health service (06) | DRG 310 ==
LOC: ER 15:21 → ICU 19:34
PROVIDERS: Admitting Provider Student in an Organized Health Care Education/Training Program; Emergency Provider Family Medicine; PCP Emergency Medicine Emergency Medical Services; Visit Provider Student in an Organized Health Care Education/Training Program
DX: I48.20 Chronic atrial fibrillation, unspecified (principal); I10 Essential (primary) hypertension; J44.9 Chronic obstructive pulmonary disease, unspecified; G31.83 Neurocognitive disorder with Lewy bodies; F02.80 Dementia in other diseases classified elsewhere, unspecified severity, without behavioral disturbance, psychotic disturbance, mood disturbance, and anxiety; E78.5 Hyperlipidemia, unspecified; K59.00 Constipation, unspecified; N40.0 Benign prostatic hyperplasia without lower urinary tract symptoms; Z66 Do not resuscitate; I95.9 Hypotension, unspecified; Z11.52 Encounter for screening for COVID-19; Z79.01 Long term (current) use of anticoagulants; Z86.010 Personal history of colon polyps; Z85.828 Personal history of other malignant neoplasm of skin; Z87.891 Personal history of nicotine dependence
CPT/HCPCS: 36415; 71045; 78452; 80053; 80061; 80162; 81003; 81015; 82607; 82746; 83036; 83540; 83550; 83735; 84100; 84145; 84443; 84484; 85025; 86403; 87040; 87486; 87581; 87633; 93005; 93017; 93306; 94640; 94664; 96375; 96376; 97161; 97167; 97530; 99285; A4222; A9500; J0283; J1160; J1940; J2785; J7030; J7614; J7626; J7644